=== PATIENT | female | born 1930 | race Caucasian/White ===

== ENCOUNTER → 2017-06-21 | Outpatient (CLI) | payer MEDICARE ==
[2016-08-07 07:15] VITALS: BP 130/67
[~2017-06-21] MED LIST: ACET500T68 PO; ALLO100T PO; ASPI325T8 PO; ASPI81TA44 PO; CHOL10002 PO; DIGO250T17 PO; FURO-68 PO; FURO20TA3 PO; INSU100V SQ; INSU100V8 SQ; LEVO500T8 PO; LIRA0.6P2 SQ; MULT-479 PO; NEBI10TA3 PO; NIAC500T9 PO; OMEP40CA5 PO; OXYB5TAB PO; SIMV40TA PO; TRAM-48 PO; VALS320T2 PO
[2017-06-21 11:06] LABS: BASO % 0 % (0-3); EOS # 0.1 x10^3/uL (0.0-0.7); EOS % 2 % (0-3); HEMATOCRIT 34.9 % (36.0-47.0); HEMOGLOBIN 11.7 g/dL (12.0-15.5); LYMPH # 2.2 x10^3/uL (1.0-4.8); LYMPH % 29 % (24-48); MEAN CORPUSCULAR HEMOGLOBIN 31 pg (25-35); MEAN CORPUSCULAR HGB CONC 34 g/dL (31-37); MEAN CORPUSCULAR VOLUME 91 fL (79-100); MONO # 0.5 x10^3/uL (0.0-1.1); MONO % 7 % (0-9); NEUT # 4.7 x10^3uL (1.8-7.7); NEUT % 62 % (31-73); PLATELET COUNT 174 x10^3/uL (140-400); RED BLOOD COUNT 3.82 x10^6/uL (3.50-5.40); RED CELL DISTRIBUTION WIDTH 14.9 % (11.5-14.5); WHITE BLOOD COUNT 7.7 x10^3/uL (4.0-11.0)
[2017-06-21 11:12] LABS: CALCIUM 8.4 mg/dL (8.5-10.1); CREATININE 1.4 mg/dL (0.6-1.0); GFR 35.4; MAGNESIUM 1.9 mg/dL (1.8-2.4); POTASSIUM 4.5 mmol/L (3.5-5.1)
[2017-06-22 00:07] LABS: CALCIUM PTH 8.5 mg/dL (8.7-10.3); CREATININE PTH 1.28 mg/dL (0.57-1.00); PTH INTACT 115 pg/mL (15-65)
== END | disposition home or self-care (01) ==
LOC: LAB 10:13
PROVIDERS: ATTEND Internal Medicine Nephrology
DX: I12.9 Hypertensive chronic kidney disease with stage 1 through stage 4 chronic kidney disease, or unspecified chronic kidney disease (principal); N18.3 Chronic kidney disease, stage 3 (moderate); E11.22 Type 2 diabetes mellitus with diabetic chronic kidney disease; D63.1 Anemia in chronic kidney disease; D50.9 Iron deficiency anemia, unspecified; E21.3 Hyperparathyroidism, unspecified; N26.9 Renal sclerosis, unspecified; E55.9 Vitamin D deficiency, unspecified; Z68.41 Body mass index [BMI] 40.0-44.9, adult
CPT/HCPCS: 36415; 80069; 82728; 83540; 83550; 83735; 83970; 85025

== ENCOUNTER 2017-06-29 05:37 | Emergency (ER) | payer MEDICARE ==
[~2017-06-29] VITALS: Ht 160 cm; Wt 99.8 kg
[2017-06-29 05:59] VITALS: BP 144/87
--- NOTE | 2017-06-29 06:48 | RAD ---
CT head and cervical spine without contrast 06/29/2017 CLINICAL INDICATION: Syncopal episode, fall, frontal head abrasions, neck pain. COMPARISON: CT head and cervical spine 08/07/2016. TECHNIQUE: Multiple CT images of the head and cervical spine were obtained without contrast according to standard protocol. *One or more of the following individualized dose reduction techniques were utilized for this examination: 1. Automated exposure control. 2. Adjustment of the mA and/or kV according to patient size. 3. Use of iterative reconstruction technique. FINDINGS: Head: There is moderate prominence of the ventricles and subarachnoid spaces compatible with moderate generalized cerebral atrophy. No acute intracranial hemorrhage or extra-axial fluid collection. There is mild periventricular white matter low attenuation compatible with mild nonspecific white matter disease. The basal cisterns are patent. No midline shift or mass effect visualized mastoid air cells and paranasal sinuses are well aerated. Cervical spine: No acute cervical spine fracture or subluxation. Moderate atlantodens arthrosis. Craniocervical junction is maintained. Multilevel cervical spondylosis with disc space narrowing, endplate sclerosis and marginal osteophyte formation greatest at moderate degree at C6-C7. Multilevel uncovertebral and facet hypertrophy and commendation with disc degeneration results and degenerative neural foraminal narrowing. Examination is not optimized for spinal canal narrowing. There is tortuosity and calcified atheromatous disease of the common carotid and internal carotid arteries. IMPRESSION: Head: 1. No acute intracranial hemorrhage or extra-axial fluid collection. 2. Moderate generalized cerebral atrophy and mild nonspecific white matter disease, likely related to chronic small vessel ischemic disease. Cervical spine: 1. No acute cervical spine fracture or subluxation. 2. Cervical spondylosis resulting in mild trilevel degenerative neural foraminal narrowing. Electronically signed by: Justin Nieto MD (06/29/2017 6:44 AM) [place] [id number]
[2017-06-29] MEDS ORDERED: NEOMY/BACITR/POLYMYXIN OINT PACKET. TP ONE (07:00)
--- NOTE | 2017-06-29 07:06 | PHYS DOC ---
Past History Past Medical History: Arthritis, CAD, Cancer, Diabetes, GERD, High Cholesterol , Hypertension, TIA, Other Past Surgical History: Appendectomy, Cancer Surgery, Cholecystectomy, Hysterectomy, Knee Replacement, Lumbar Laminectomy, Other Smoking: Non-smoker Alcohol Use: None Drug Use: None Adult General Chief Complaint Chief Complaint: MECHANICAL FALL HPI HPI Patient is a 87 year old female who presents with pain after a fall. The patient states she had gotten out of bed to use the restroom, doesn't remember what happened but she fell to the floor & hit her face against the floor. She is unsure if she experienced syncope or mechanical fall. She complains of headache, has forehead & left upper arm abrasions. She denies back pain, hip pain. Denies chest pain, palpitations, shortness of breath, extremity numbness/ weakness. No recent vomiting, diarrhea, hematochezia/melena. Was able to ambulate to the phone to call 911. She lives alone & uses a walker to ambulate. She has previous history of fall but not frequently or recently. She takes eliquis for atrial fibrillation. Her PCP is Dr. Le. Review of Systems Review of Systems Constitutional: Denies fever or chills Eyes: Denies change in visual acuity HENT: Denies nasal congestion or sore throat Respiratory: Denies cough or shortness of breath Cardiovascular: Denies chest pain or edema GI: Denies abdominal pain, nausea, vomiting, bloody stools or diarrhea : Denies dysuria or hematuria Musculoskeletal: Denies back pain or joint pain Integument: Reports abrasions Neurologic: Reports headache, denies focal weakness or sensory changes Current Medications Current Medications Current Medications Medications (Trade) Dose Ordered Sig/Amy Start Time Stop Time Status Last Admin Dose Admin Neomycin/ Polymyxin/ Bacitracin (Triple Antibiotic Ointment) 1 pkt 1X ONCE 06/29/17 07:00 06/29/17 07:01 DC 06/29/17 06:56 1 PKT Allergies Allergies Allergies Coded Allergies Type Severity Reaction Last Updated Verified codeine Allergy Unknown 05/04/14 Yes lisinopril Allergy Unknown cough 06/25/14 No morphine Allergy Unknown 05/04/14 Yes Physical Exam Physical Exam Constitutional: obese, no acute distress, non-toxic appearance. HENT: Normocephalic, forehead abrasion, bilateral external ears normal, oropharynx moist, nose normal. Eyes: PERRLA, EOMI, conjunctiva normal, no discharge. Neck: supple, no stridor. No midline c-spine tenderness. Cardiovascular: RRR, no murmurs, no edema. Lungs & Thorax: LCTAB, no wheezing, no respiratory distress. Abdomen: soft, nontender, nondistended. Skin: abrasion to forehead, 2 large skin tears to left upper arm. Back: No spinal tenderness or step offs. Extremities: No tenderness, no edema. Neurologic: Alert and oriented X 3, CN2-12 grossly intact, symmetric strength/ sensation to upper & lower extremities, no focal deficits noted. Psychologic: Affect normal, judgement normal, mood normal. Current Patient Data Vital Signs Vital Signs Date Time Temp Pulse Resp B/P (MAP) Pulse Ox O2 Delivery O2 Flow Rate FiO2 06/29/17 05:59 97.9 60 22 95 Room Air Lab Results Laboratory Tests Test 06/29/17 05:48 Glucose (Fingerstick) 190 mg/dL (70-99) H EKG EKG interpreted by me: NSR rate 60, no acute ST/T wave changes, intraventricular block, AR interval prolonged 232 ms, no ectopy. Radiology/Procedures Radiology/Procedures PROCEDURE: CT HEAD AND CERVICAL SPINE WO CT head and cervical spine without contrast 06/29/2017 CLINICAL INDICATION: Syncopal episode, fall, frontal head abrasions, neck pain. COMPARISON: CT head and cervical spine 08/07/2016. TECHNIQUE: Multiple CT images of the head and cervical spine were obtained without contrast according to standard protocol. *One or more of the following individualized dose reduction techniques were utilized for this examination: 1. Automated exposure control. 2. Adjustment of the mA and/or kV according to patient size. 3. Use of iterative reconstruction technique. FINDINGS: Head: There is moderate prominence of the ventricles and subarachnoid spaces compatible with moderate generalized cerebral atrophy. No acute intracranial hemorrhage or extra-axial fluid collection. There is mild periventricular white matter low attenuation compatible with mild nonspecific white matter disease. The basal cisterns are patent. No midline shift or mass effect visualized mastoid air cells and paranasal sinuses are well aerated. Cervical spine: No acute cervical spine fracture or subluxation. Moderate atlantodens arthrosis. Craniocervical junction is maintained. Multilevel cervical spondylosis with disc space narrowing, endplate sclerosis and marginal osteophyte formation greatest at moderate degree at C6-C7. Multilevel uncovertebral and facet hypertrophy and commendation with disc degeneration results and degenerative neural foraminal narrowing. Examination is not optimized for spinal canal narrowing. There is tortuosity and calcified atheromatous disease of the common carotid and internal carotid arteries. IMPRESSION: Head: 1. No acute intracranial hemorrhage or extra-axial fluid collection. 2. Moderate generalized cerebral atrophy and mild nonspecific white matter disease, likely related to chronic small vessel ischemic disease. Cervical spine: 1. No acute cervical spine fracture or subluxation. 2. Cervical spondylosis resulting in mild trilevel degenerative neural foraminal narrowing. Electronically signed by: Inderjit Nieto MD (06/29/2017 6:44 AM) [facility] DICTATED AND SIGNED BY: INDERJIT NIETO MD DATE: 06/29/17 0636 [] Course & Med Decision Making Course & Med Decision Making Pertinent Labs and Imaging studies reviewed. (See chart for details) The patient presents with pain after a fall. Tetanus was up to date. Initially there was concern for syncope but later in the visit she was very insistent that she was just "clumsy" & tripped over her own feet. She had normal neurologic exam, no arrhythmia here. Stable on her feet after evaluation. Labs show mild acute renal failure & UTI although there is some contamination. CT shows no intracranial injury or c-spine injury. Skin tears cleaned, triple antibiotic & dressing applied by RN. Offered admission as she lives alone, possible syncope, & possibility of delayed intracranial hemorrhage [facility]. She is insistent that she prefers to go home. Her son is present in the room at time of this discussion & he feels comfortable taking her home. I discussed with Dr. Le, her PCP, & he can see her this afternoon in the clinic. Gave macrobid for UTI. Recommend rest, hydration, stand slowly from sitting, use walker, wound care. Come back for altered mental status, focal neuro deficit, ataxia, syncope, chest pain, palpitations, extremity numbness/ weakness, any otherwise worsening condition. Discharged home in stable condition. [] Dragon Disclaimer Dragon Disclaimer This chart was dictated in whole or in part using Voice Recognition software in a busy, high-work load, and often noisy Emergency Department environment. It may contain unintended and wholly unrecognized errors or omissions. Departure Departure: Impression: Primary Impression: Closed head injury Additional Impressions: Forehead abrasion Urinary tract infection Disposition: 01 HOME, SELF-CARE Condition: STABLE Referrals: ODELL LE MD (PCP) Patient Instructions: Fall Prevention and Home Safety, [id number], Head Injury, Adult, Uwoc-[id number], Skin Tear Care, Etuz-nf-Pwak, Urinary Tract Infection, Ksti-xy-Ddut Additional Instructions: You were seen in the emergency department today for fall. You had normal CT scan of your head & neck. You had a urinary tract infection. please take the prescribed antibiotic. Use your walker. There is a chance of delayed bleeding in your brain when you are on blood thinners, so we discussed admission to the hospital. You didn't want to stay in the hospital, so Dr. Le can see you today after your appointment with Dr. Valencia. Come back for confusion, unsteady walking, numbness or weakness in arms or legs, chest pain, palpitations , shortness of breath, recurrence of fall or fainting, any otherwise worsening condition. Scripts Nitrofurantoin Monohyd/M-Cryst (MACROBID 100 MG CAPSULE) 100 Mg Capsule 1 CAP PO BID, #14 CAP Prov: KIT MILLAN MD 06/29/17 Problem Qualifiers KIT MILLAN MD Jun 29, 2017 07:06
[2017-06-29 07:21] LABS: BASO # 0.1 x10^3/uL (0.0-0.2); BASO % 1 % (0-3); EOS # 0.1 x10^3/uL (0.0-0.7); EOS % 1 % (0-3); HEMOGLOBIN 11.9 g/dL (12.0-15.5); LYMPH % 28 % (24-48); MEAN CORPUSCULAR HEMOGLOBIN 31 pg (25-35); MEAN CORPUSCULAR HGB CONC 34 g/dL (31-37); MEAN CORPUSCULAR VOLUME 90 fL (79-100); MONO # 0.5 x10^3/uL (0.0-1.1); MONO % 7 % (0-9); NEUT # 4.7 x10^3uL (1.8-7.7); NEUT % 64 % (31-73); PLATELET COUNT 154 x10^3/uL (140-400); RED BLOOD COUNT 3.87 x10^6/uL (3.50-5.40); RED CELL DISTRIBUTION WIDTH 14.4 % (11.5-14.5); WHITE BLOOD COUNT 7.3 x10^3/uL (4.0-11.0)
[2017-06-29 07:32] LABS: BACTERIA,URINE FEW /HPF (0-FEW); BILIRUBIN,URINE NEG (NEG); CLARITY,URINE HAZY; COLOR,URINE YELLOW; GLUCOSE,URINE NEG (NEG); NITRITE,URINE NEG (NEG); SQUAMOUS EPITHELIAL CELL,UR MOD /LPF; UROBILINOGEN,URINE 0.2 mg/dL (0.2 mg/dL)
[2017-06-29 07:38] LABS: ALBUMIN 3.1 g/dL (3.4-5.0); ALBUMIN/GLOBULIN RATIO 0.9 (1.0-1.7); CALCIUM 8.6 mg/dL (8.5-10.1); CREATININE 1.6 mg/dL (0.6-1.0); GFR 30.3; POTASSIUM 4.6 mmol/L (3.5-5.1); TOTAL BILIRUBIN 0.2 mg/dL (0.2-1.0); TOTAL PROTEIN 6.4 g/dL (6.4-8.2)
[2017-06-29] MEDS ORDERED: NITR100C62 PO (08:06)
[2017-06-29 08:46] LABS: PLT ESTIMATE ADEQUATE (ADEQUATE)
[2017-06-29 08:47] LABS: PLATELET CLUMP PRESENT
--- NOTE | 2017-06-29 18:57 | EKG ---
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
== END 2017-06-29 08:35 | disposition home or self-care (01) ==
LOC: ER 05:37
DX: S09.8XXA Other specified injuries of head, initial encounter (principal); S00.81XA Abrasion of other part of head, initial encounter; S40.812A Abrasion of left upper arm, initial encounter; N39.0 Urinary tract infection, site not specified; I25.10 Atherosclerotic heart disease of native coronary artery without angina pectoris; E11.9 Type 2 diabetes mellitus without complications; E78.00 Pure hypercholesterolemia, unspecified; I10 Essential (primary) hypertension; K21.9 Gastro-esophageal reflux disease without esophagitis; I48.91 Unspecified atrial fibrillation; Z86.73 Personal history of transient ischemic attack (TIA), and cerebral infarction without residual deficits; Z88.5 Allergy status to narcotic agent; Z88.8 Allergy status to other drugs, medicaments and biological substances; W18.09XA Striking against other object with subsequent fall, initial encounter; Y93.89 Activity, other specified; Y99.8 Other external cause status; Y92.89 Other specified places as the place of occurrence of the external cause
CPT/HCPCS: 36415; 70450; 72125; 80053; 81001; 82947; 83880; 84484; 85025; 85610; 87086; 93005; 99285-25

== ENCOUNTER 2017-08-26 10:30 | Inpatient (IN) | payer MEDICARE ==
[~2017-08-26] VITALS: Ht 160 cm; Wt 109.9 kg
[~2017-08-26 10:30] MED LIST changes: +NITR100C62 PO
--- NOTE | 2017-08-26 10:46 | PHYS DOC ---
Past History Past Medical History: Arthritis, CAD, Cancer, Diabetes, GERD, High Cholesterol , Hypertension, TIA, Other Past Surgical History: Appendectomy, Cancer Surgery, Cholecystectomy, Hysterectomy, Knee Replacement, Lumbar Laminectomy, Other Smoking: Non-smoker Alcohol Use: None Drug Use: None Adult General Chief Complaint Chief Complaint: chest pain HPI HPI Patient is a 87 year old female who presents with 2-3 day history of fairly constant substernal chest discomfort mild to moderate nonradiating no shortness of breath no nausea vomiting or diarrhea no dysuria or frequency or flank pain no fever no cough. History of coronary artery disease and pacemaker. She was a very poor historian. Financial Representative is Dr. Holloway, primary care physician is Dr. Pickering. Review of Systems Review of Systems Constitutional: Denies fever or chills [] Eyes: Denies change in visual acuity, redness, or eye pain [] HENT: Denies nasal congestion or sore throat [] Respiratory: Denies cough or shortness of breath [] Cardiovascular: No additional information not addressed in HPI [] GI: Denies abdominal pain, nausea, vomiting, bloody stools or diarrhea [] : Denies dysuria or hematuria [] Musculoskeletal: Denies back pain or joint pain [] Integument: Denies rash or skin lesions [] Neurologic: Denies headache, focal weakness or sensory changes [] Endocrine: Denies polyuria or polydipsia [] All other systems were reviewed and found to be within normal limits, except as documented in this note. Family History Family History Coronary artery disease Allergies Allergies Allergies Coded Allergies Type Severity Reaction Last Updated Verified codeine Allergy Unknown 05/04/14 Yes lisinopril Allergy Unknown cough 06/25/14 No morphine Allergy Unknown 05/04/14 Yes Physical Exam Physical Exam Constitutional: Well developed, well nourished, no acute distress, non-toxic appearance. [] HENT: Normocephalic, atraumatic, bilateral external ears normal, oropharynx moist, no oral exudates, nose normal. [] Eyes: PERRLA, EOMI, conjunctiva normal, no discharge. [] Neck: Normal range of motion, no tenderness, supple, no stridor. [] Cardiovascular:Heart rate regular rhythm, no murmur [] Lungs & Thorax: Bilateral breath sounds clear to auscultation [] Abdomen: Bowel sounds normal, soft, no tenderness, no masses, no pulsatile masses. [] Skin: Warm, dry, no erythema, no rash. [] Back: No tenderness, no CVA tenderness. [] Extremities: No tenderness, no cyanosis, no clubbing, ROM intact, no edema. [] Neurologic: Alert and oriented X 3, normal motor function, normal sensory function, no focal deficits noted. [] Psychologic: Affect normal, judgement normal, mood normal. [] Current Patient Data Lab Results Laboratory Tests Test 08/26/17 10:59 White Blood Count 7.6 x10^3/uL Red Blood Count 4.26 x10^6/uL Hemoglobin 12.7 g/dL Hematocrit 38.8 % Mean Corpuscular Volume 91 fL Mean Corpuscular Hemoglobin 30 pg Mean Corpuscular Hemoglobin Concent 33 g/dL Red Cell Distribution Width 15.5 % Platelet Count 189 x10^3/uL Neutrophils (%) (Auto) 66 % Lymphocytes (%) (Auto) 27 % Monocytes (%) (Auto) 5 % Eosinophils (%) (Auto) 1 % Basophils (%) (Auto) 0 % Neutrophils # (Auto) 5.0 x10^3uL Lymphocytes # (Auto) 2.1 x10^3/uL Monocytes # (Auto) 0.4 x10^3/uL Eosinophils # (Auto) 0.1 x10^3/uL Basophils # (Auto) 0.0 x10^3/uL Sodium Level 141 mmol/L Potassium Level 4.2 mmol/L Chloride Level 104 mmol/L Carbon Dioxide Level 26 mmol/L Anion Gap 11 Blood Urea Nitrogen 50 mg/dL Creatinine 2.1 mg/dL Estimated GFR (Cockcroft-Gault) 22.2 BUN/Creatinine Ratio 24 Glucose Level 240 mg/dL Calcium Level 8.8 mg/dL Total Bilirubin 0.3 mg/dL Aspartate Amino Transf (AST/SGOT) 15 U/L Alanine Aminotransferase (ALT/SGPT) 16 U/L Alkaline Phosphatase 74 U/L Troponin I Quantitative < 0.017 ng/mL Total Protein 6.7 g/dL Albumin 3.1 g/dL Albumin/Globulin Ratio 0.9 Current Medications Medications (Trade) Dose Ordered Sig/Amy Route PRN Reason Start Time Stop Time Status Last Admin Dose Admin Aspirin (Children'S Aspirin) 324 mg 1X ONCE PO 08/26/17 12:15 08/26/17 12:16 Ondansetron HCl (Zofran) 4 mg PRN Q4HRS PRN IV NAUSEA/VOMITING 08/26/17 12:00 08/27/17 11:59 Fentanyl Citrate (Fentanyl 2ml Vial) 50 mcg PRN Q2HR PRN IV PAIN 08/26/17 12:00 08/27/17 11:59 Acetaminophen (Tylenol) 650 mg PRN Q4HRS PRN PO FEVER 08/26/17 12:00 08/27/17 11:59 Nitroglycerin (Nitrostat) 0.4 mg PRN Q5MIN PRN SL CHEST PAIN 08/26/17 12:00 08/27/17 11:59 EKG EKG EKG paced rhythm rate of 80 intraventricular conduction block no STEMI QTC 505 my interpretation[] Radiology/Procedures Radiology/Procedures Chest x-ray No acute cardiopulmonary process seen per radiology report[] Course & Med Decision Making Course & Med Decision Making Pertinent Labs and Imaging studies reviewed. (See chart for details) [EKG paced rhythm, troponin negative, chest x-ray no signs of heart failure. Creatinine was elevated at 2.1; baseline appears to be in the mid 1 range. Left 50 a.m. patient is resting comfortably. I've discussed the case with Dr. Pickering who agrees to admit the patient to telemetry.] Dragon Disclaimer Dragon Disclaimer This electronic medical record was generated, in whole or in part, using a voice recognition dictation system. Departure Departure: Impression: Primary Impression: Acute chest pain Additional Impression: Acute kidney injury Disposition: ADMITTED INPATIENT Condition: STABLE Referrals: ODELL LE MD (PCP) Problem Qualifiers DENVER SORTO MD Aug 26, 2017 10:46
[2017-08-26 11:15] LABS: BASO % 0 % (0-3); EOS # 0.1 x10^3/uL (0.0-0.7); EOS % 1 % (0-3); HEMATOCRIT 38.8 % (36.0-47.0); HEMOGLOBIN 12.7 g/dL (12.0-15.5); LYMPH # 2.1 x10^3/uL (1.0-4.8); LYMPH % 27 % (24-48); MEAN CORPUSCULAR HEMOGLOBIN 30 pg (25-35); MEAN CORPUSCULAR HGB CONC 33 g/dL (31-37); MEAN CORPUSCULAR VOLUME 91 fL (79-100); MONO # 0.4 x10^3/uL (0.0-1.1); MONO % 5 % (0-9); NEUT % 66 % (31-73); PLATELET COUNT 189 x10^3/uL (140-400); RED BLOOD COUNT 4.26 x10^6/uL (3.50-5.40); RED CELL DISTRIBUTION WIDTH 15.5 % (11.5-14.5); WHITE BLOOD COUNT 7.6 x10^3/uL (4.0-11.0)
--- NOTE | 2017-08-26 11:24 | RAD ---
AP chest radiograph 08/26/2017 Clinical indication: Chest pain Comparison: Chest radiograph 08/07/2016 Findings: Left chest wall cardiac connection device in similar position. Cardiac and mediastinal silhouettes are unremarkable. Calcified atheromatous disease of the thoracic aorta. No pleural effusion, pneumothorax or focal consolidation. Impression: No acute cardiopulmonary abnormality.
[2017-08-26 11:28] LABS: ALBUMIN 3.1 g/dL (3.4-5.0); ALBUMIN/GLOBULIN RATIO 0.9 (1.0-1.7); CALCIUM 8.8 mg/dL (8.5-10.1); CREATININE 2.1 mg/dL (0.6-1.0); GFR 22.2; POTASSIUM 4.2 mmol/L (3.5-5.1); TOTAL BILIRUBIN 0.3 mg/dL (0.2-1.0); TOTAL PROTEIN 6.7 g/dL (6.4-8.2)
[2017-08-26] MEDS ORDERED: ACETAMINOPHEN 325 MG TABLET PO PRN (12:00)
[2017-08-26] MEDS ORDERED: ONDANSETRON PF 4 MG/2 ML VIAL. IV PRN (12:00)
[2017-08-26] MEDS ORDERED: NITROGLYCERIN SUBLINGUAL 0.4 MG BOTTLE OF 25. SL PRN (12:00)
[2017-08-26] MEDS ORDERED: ASPIRIN 81 MG TAB.CHEW PO ONE (12:15)
[2017-08-26 14:15] VITALS: BP 120/86
[2017-08-26] MEDS ORDERED: SIMV40TA3 PO (14:29)
[2017-08-26] MEDS ORDERED: INSU100I32 SQ (14:29)
[2017-08-26] MEDS ORDERED: LEVO75TA5 PO (14:29)
[2017-08-26] MEDS ORDERED: INSU100I11 SQ (14:29)
[2017-08-26] MEDS ORDERED: VALS1TAB31 PO (14:29)
[2017-08-26] MEDS ORDERED: NEBI5TAB2 PO (14:29)
[2017-08-26] MEDS ORDERED: CITA20TA5 PO (14:29)
[2017-08-26 15:27] VITALS: BP 114/66
--- NOTE | 2017-08-26 15:45 | EKG ---
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
[2017-08-26] MEDS: INSULIN ASPART 300 UNITS/3 ML INSULN.PEN SQ SCH (16:30)
[2017-08-26 20:21] VITALS: BP 106/48
[2017-08-26] MEDS: SIMVASTATIN 40 MG TABLET. PO SCH (20:22)
[2017-08-26] MEDS: CITALOPRAM 20 MG TABLET. PO SCH (20:22)
[2017-08-26] MEDS: INSULIN DETEMIR 300 UNITS/3 ML INSULN.PEN. SQ SCH (20:29)
[2017-08-26] MEDS: PANTOPRAZOLE 40 MG TABLET. PO SCH (20:29)
[2017-08-26 23:21] VITALS: BP 124/56
[2017-08-27] MEDS: ACETAMINOPHEN 500 MG TABLET PO PRN ×2 (01:10→20:54)
[2017-08-27 06:15] VITALS: BP 150/75
[2017-08-27] MEDS: LEVOTHYROXINE 75 MCG TABLET PO SCH (06:20)
[2017-08-27 07:27] LABS: BASO % 0 % (0-3); EOS # 0.1 x10^3/uL (0.0-0.7); EOS % 2 % (0-3); HEMATOCRIT 35.8 % (36.0-47.0); HEMOGLOBIN 11.5 g/dL (12.0-15.5); LYMPH # 2.6 x10^3/uL (1.0-4.8); LYMPH % 35 % (24-48); MEAN CORPUSCULAR HEMOGLOBIN 29 pg (25-35); MEAN CORPUSCULAR HGB CONC 32 g/dL (31-37); MEAN CORPUSCULAR VOLUME 91 fL (79-100); MONO # 0.7 x10^3/uL (0.0-1.1); MONO % 9 % (0-9); NEUT # 4.1 x10^3uL (1.8-7.7); NEUT % 55 % (31-73); PLATELET COUNT 174 x10^3/uL (140-400); RED BLOOD COUNT 3.93 x10^6/uL (3.50-5.40); RED CELL DISTRIBUTION WIDTH 15.6 % (11.5-14.5); WHITE BLOOD COUNT 7.5 x10^3/uL (4.0-11.0)
[2017-08-27 07:42] LABS: ALBUMIN/GLOBULIN RATIO 0.9 (1.0-1.7); CALCIUM 8.6 mg/dL (8.5-10.1); CREATININE 2.2 mg/dL (0.6-1.0); POTASSIUM 4.2 mmol/L (3.5-5.1); TOTAL BILIRUBIN 0.4 mg/dL (0.2-1.0); TOTAL PROTEIN 6.3 g/dL (6.4-8.2)
[2017-08-27] MEDS: INSULIN ASPART 300 UNITS/3 ML INSULN.PEN SQ SCH ×3 (08:02→17:07)
[2017-08-27] MEDS ORDERED: ENOXAPARIN 30 MG/0.3 ML DISP.SYRIN. SQ SCH (10:00)
[2017-08-27] MEDS: IV NORMAL SALINE 1,000ML 1,000 ML IV SCH (10:24)
[2017-08-27] MEDS: LOSARTAN 50 MG TABLET. PO SCH (10:25)
[2017-08-27] MEDS: hydroCHLOROthiazide 25 MG TABLET PO SCH (10:26)
[2017-08-27] MEDS: CITALOPRAM 20 MG TABLET. PO SCH ×2 (10:27→20:54)
[2017-08-27] MEDS: MULTIVITAMIN with MINERAL TABLET. PO SCH (10:27)
[2017-08-27] MEDS: ALLOPURINOL 100 MG TABLET. PO SCH (10:27)
[2017-08-27] MEDS: PANTOPRAZOLE 40 MG TABLET. PO SCH (10:27)
[2017-08-27] MEDS: ASPIRIN 81 MG TAB.CHEW PO SCH (10:27)
[2017-08-27] MEDS: CHOLECALCIFEROL (VITAMIN D3) 1,000 UNIT TABLET PO SCH (10:27)
[2017-08-27] MEDS: METOPROLOL TART IMMED RELEASE 25 MG TABLET PO SCH ×2 (10:27→20:54)
--- NOTE | 2017-08-27 10:33 | HP ---
ADMIT DATE: 08/26/2017 HISTORY OF PRESENT ILLNESS: An 87-year-old female came in, she has been having intermittent chest pain in her left upper chest and down her left arm with minimal exertion. The patient came in through the Emergency Room. She has a previous history of multiple medical problems. As a result of this, the patient was admitted to the hospital for further evaluation and treatment and consultation with her research chemist, Dr. Estrada, from the [facility]. MEDICATIONS: Include Tylenol, allopurinol 100 mg, aspirin 81, vitamin D3, Celexa 20, insulin, Bystolic 5 mg daily, multivitamin, Prilosec 40 b.i.d., Zocor 40, Valsartan/HCTZ 320/12.5. ALLERGIES: CODEINE, LISINOPRIL, MORPHINE. FAMILY HISTORY: Noncontributory. SOCIAL HISTORY: The patient denies smoking, alcohol or drug use. REVIEW OF SYSTEMS: Positive for chest pain. Denies shortness of breath. Denies headaches, visual changes, blurred vision, or double vision. Denies any melena, hematochezia, or hematemesis, and neurologically baseline for this patient. PHYSICAL EXAMINATION: GENERAL: She is a very pleasant white female, looking a little bit overweight. VITAL SIGNS: Blood pressure 114/66, respiratory rate 20, pulse 80, afebrile. The patient is alert and oriented x3. HEENT: Head is atraumatic, normocephalic. Mouth and throat were normal. NECK: Supple. LUNGS: Clear. CARDIOVASCULAR: Regular sinus rhythm, S1, S2. ABDOMEN: Protuberant, soft, nontender. EXTREMITIES: No clubbing or cyanosis. Trace edema noted, but otherwise unremarkable there. NEUROLOGIC: The patient is alert and oriented x3. LABORATORY DATA: So far are basically unremarkable. White count 7, hemoglobin and hematocrit 12 and 38. The patient's sugar was 265. Cardiac enzymes were negative. Albumin low showing moderate protein deficiency as well as CKD 3. IMPRESSION: Chest pain, rule out angina. PAST MEDICAL HISTORY: Cataract extraction, tonsillectomy, adenoidectomy. She has had a previous history of heart attack, congestive heart failure, coronary artery disease, coronary stent placement, pacemaker, oxygen administration, strictures of the esophagus, pancreatitis, cholecystectomy, obesity, hysterectomy, type 2 diabetes, inguinal hernia, arthritis, gout, orthopedic surgery, joint replacement, back pain, diabetes and depression as well as basal cell carcinoma as well as squamous cell carcinoma, and cataract surgery. The patient otherwise ____ chest pain, type 2 diabetes, morbid obesity, risk factors for heart disease, previous heart attack. PLAN: Continue to monitor the patient accordingly. Make further evaluation on her as indicated. ODELL LE MD DR: MARINO/treva JOB#: [id number] / [id number]
[2017-08-27 12:18] VITALS: BP 141/53
--- NOTE | 2017-08-27 13:25 | PDOC2 ---
CARDIAC CONSULT DATE OF CONSULT Date Of Consult DATE: 08/27/17 TIME: 13:12 REASON FOR CONSULT Reason for Consult Chest pain REFERRING PHYSICIAN Referring Physician Scott Brar MD HPI History of Present Illness Ms. Phillips is a very pleasant 87-year-old female who is currently hospitalized after presenting with symptoms of chest pains. The patient is well known to my partner, Dr. Holloway. The patient has a history of coronary disease status post PCI to the LAD in 2009, as well as PCI to the right coronary artery in 1996. In addition, she does have underlying paroxysmal atrial fibrillation, sick sinus syndrome with permanent pacemaker, essential hypertension, hyperlipidemia, moderate bilateral carotid artery disease, diabetes mellitus type 2, chronic kidney disease, gastroesophageal reflux disease with previous esophageal stricture dilations, and gastroesophageal reflux disease. The patient was most recently seen in our office approximately 5 months ago. At that time, the patient had presented for a routine follow-up visit. She was noted to be relatively stable with only mild symptoms of stable angina, and it was recommended that she continue on her optimal medical regimen. More recently, the patient presented with a several day history of progressively worsening symptoms of chest pains. She describes this as a pressure-like sensation in her mid chest. Interestingly, the patient reports that the pain occurs periodically, and is not necessarily associate with any particular activity. It is intermittent in frequency, and resolve spontaneously. Although she does report atypical features, she does think that the pain may be somewhat similar to her prior at high angina. Her workup thus far has included serial troponin enzymes which have been negative. Her serum creatinine appears to be abnormal, above her baseline creatinine. The patient' s ECG did not demonstrate any significant ischemic changes with underlying paced rhythm. Today, the patient reports that she has continued to have intermittent chest pain symptoms. She denies any palpitations, lightheadedness , or syncope. The patient is otherwise doing well today and has no other particular complaints. FAMILY HISTORY Family History Noncontributory SOCIAL HISTORY Smoke: No CURRENT MEDICATIONS Current Medications Current Medications Aspirin (Children'S Aspirin) 324 mg 1X ONCE PO Last administered on t 12:10; Start 08/26/17 at 12:15; Stop 08/26/17 at 12:16; Status DC Ondansetron HCl (Zofran) 4 mg PRN Q4HRS PRN IV NAUSEA/VOMITING; Start at 12:00; Stop 08/27/17 at 11:59; Status DC Fentanyl Citrate (Fentanyl 2ml Vial) 50 mcg PRN Q2HR PRN IV PAIN; Start at 12:00; Stop 08/27/17 at 11:59; Status DC Acetaminophen (Tylenol) 650 mg PRN Q4HRS PRN PO FEVER; Start 08/26/17 at 12:00 ; Stop 08/26/17 at 15:36; Status DC Nitroglycerin (Nitrostat) 0.4 mg PRN Q5MIN PRN SL CHEST PAIN; Start 08/26/17 at 12:00; Stop 08/27/17 at 11:59; Status DC Acetaminophen (Tylenol) 1,000 mg PRN Q6HRS PRN PO PAIN Last administered on 01:10; Start 08/26/17 at 15:15 Allopurinol (Zyloprim) 200 mg DAILY PO Last administered on 08/27/17 10:27; Start 08/27/17 at 09:00 Aspirin (Children'S Aspirin) 81 mg DAILY PO Last administered on 08/27/17 10: 27; Start 08/27/17 at 09:00 Vitamin D (Vitamin D3) 1,000 unit DAILY PO Last administered on 08/27/17 10: 27; Start 08/27/17 at 09:00 Citalopram Hydrobromide (CeleXA) 20 mg BID PO Last administered on 08/27/17 10:27; Start 08/26/17 at 21:00 Levothyroxine Sodium (Synthroid) 75 mcg DAILY07 PO Last administered on 06:20; Start 08/27/17 at 07:00 Simvastatin (Zocor) 40 mg HS PO Last administered on 08/26/17 20:22; Start 08/26/17 at 21:00 Insulin Detemir (Levemir) 28 units QHS SQ Last administered on 08/26/17 20:29 ; Start 08/26/17 at 21:00 Insulin Aspart (NovoLOG) 22 units TIDAC SQ Last administered on 08/27/17 12: 21; Start 08/26/17 at 16:30 Multivitamins/ Calcium (Thera-M Plus) 1 tab DAILY PO Last administered on 08/27 10:27; Start 08/27/17 at 09:00 Metoprolol Tartrate (Lopressor) 25 mg BID PO Last administered on 08/27/17 10 :27; Start 08/27/17 at 09:00 Pantoprazole Sodium (Protonix) 40 mg DAILY PO Last administered on 08/27/17 10:27; Start 08/26/17 at 21:00 Losartan Potassium (Cozaar) 100 mg DAILY PO Last administered on 08/27/17 10: 25; Start 08/27/17 at 09:00 Hydrochlorothiazide (Hydrodiuril) 6.25 mg DAILY PO Last administered on 10:26; Start 08/27/17 at 09:00 Sodium Chloride 1,000 ml @ 75 mls/hr [id number] IV Last administered on 10:24; Start 08/27/17 at 09:45 Enoxaparin Sodium (Lovenox) 30 mg Q24H SQ Last administered on 08/27/17 10:24 ; Start 08/27/17 at 10:00 Active Scripts Active Reported Valsartan-Hctz 320-12.5 Mg Tab (Valsartan/Hydrochlorothiazide) 1 Each Tablet 1 Tab PO BID LAST DOSE GIVEN: DATE: TIME: NEXT DOSE DUE: DATE: TIME: Levothyroxine Sodium 75 Mcg Tablet 75 Mcg PO DAILY LAST DOSE GIVEN: DATE: TIME: NEXT DOSE DUE: DATE: TIME: Citalopram Hbr (Citalopram Hydrobromide) 20 Mg Tablet 20 Mg PO BID LAST DOSE GIVEN: DATE: TIME: NEXT DOSE DUE: DATE: TIME: Bystolic (Nebivolol Hcl) 5 Mg Tablet 5 Mg PO DAILY LAST DOSE GIVEN: DATE: TIME: NEXT DOSE DUE: DATE: TIME: Simvastatin 40 Mg Tablet 40 Mg PO HS LAST DOSE GIVEN: DATE: TIME: NEXT DOSE DUE: DATE: TIME: Mihir Santoyo U-100 (Insulin Glargine,Hum.rec.anlog) 100 Unit/1 Ml Insuln.pen 28 Units SQ HS LAST DOSE GIVEN: DATE: TIME: NEXT DOSE DUE: DATE: TIME: Humalog (Insulin Lispro) 100 Unit/1 Ml Insuln.pen 22 Units SQ TIDAC LAST DOSE GIVEN: DATE: TIME: NEXT DOSE DUE: DATE: TIME: Allopurinol 100 Mg Tablet 2 Tab PO DAILY For gout last dose: today next dose: tomorrow Children's Aspirin (Aspirin) 81 Mg Tab.chew 81 Mg PO DAILY For heart health Next dose: tomorrow Acetaminophen 500 Mg Tablet 2 Tab PO PRN Q6HRS PRN Take wvery 6 as needed for pain Omeprazole 40 Mg Capsule.dr 40 Mg PO BID last dose 06/28 am next dose 06/29 am Thera-Tabs (Multivitamins,Therapeutic) 1 Each Tablet 1 Each PO DAILY Vitamin D (Cholecalciferol (Vitamin D3)) 1,000 Unit Tablet 1,000 Unit PO DAILY last dose: today next dose: tomorrow ALLERGIES Allergies: Coded Allergies: codeine (Verified Allergy, Intermediate, 08/27/17) lisinopril (Unverified Allergy, Intermediate, cough, 08/27/17) morphine (Verified Allergy, Intermediate, 08/27/17) PHYSICAL EXAM General: Alert, Oriented X3, Cooperative, No acute distress HEENT: Atraumatic, PERRLA, EOMI Lungs: Clear to auscultation, Normal air movement Heart: Regular rate, No murmurs Abdomen: Normal bowel sounds, Soft, No tenderness Extremities: No clubbing, No edema Neuro: Normal speech, Normal tone, Cranial nerves 3-12 NL Psych/Mental Status: Mental status NL MUSCULOSKELETAL: No joint tenderness VITALS Vital Signs Vital Signs Date Time Temp Pulse Resp B/P (MAP) Pulse Ox O2 Delivery O2 Flow Rate FiO2 08/27/17 12:18 97.3 61 20 141/53 (82) 99 Room Air LABS LABS Laboratory Tests Test 08/26/17 10:59 08/26/17 16:40 08/26/17 16:45 08/26/17 19:42 White Blood Count 7.6 x10^3/uL (4.0-11.0) Red Blood Count 4.26 x10^6/uL (3.50-5.40) Hemoglobin 12.7 g/dL (12.0-15.5) Hematocrit 38.8 % (36.0-47.0) Mean Corpuscular Volume 91 fL (79-100) Mean Corpuscular Hemoglobin 30 pg (25-35) Mean Corpuscular Hemoglobin Concent 33 g/dL (31-37) Red Cell Distribution Width 15.5 % (11.5-14.5) Platelet Count 189 x10^3/uL (140-400) Neutrophils (%) (Auto) 66 % (31-73) Lymphocytes (%) (Auto) 27 % (24-48) Monocytes (%) (Auto) 5 % (0-9) Eosinophils (%) (Auto) 1 % (0-3) Basophils (%) (Auto) 0 % (0-3) Neutrophils # (Auto) 5.0 x10^3uL (1.8-7.7) Lymphocytes # (Auto) 2.1 x10^3/uL (1.0-4.8) Monocytes # (Auto) 0.4 x10^3/uL (0.0-1.1) Eosinophils # (Auto) 0.1 x10^3/uL (0.0-0.7) Basophils # (Auto) 0.0 x10^3/uL (0.0-0.2) Sodium Level 141 mmol/L (136-145) Potassium Level 4.2 mmol/L (3.5-5.1) Chloride Level 104 mmol/L (98-107) Carbon Dioxide Level 26 mmol/L (21-32) Anion Gap 11 (6-14) Blood Urea Nitrogen 50 mg/dL (7-20) Creatinine 2.1 mg/dL (0.6-1.0) Estimated GFR (Cockcroft-Gault) 22.2 BUN/Creatinine Ratio 24 (6-20) Glucose Level 240 mg/dL (70-99) Calcium Level 8.8 mg/dL (8.5-10.1) Total Bilirubin 0.3 mg/dL (0.2-1.0) Aspartate Amino Transf (AST/SGOT) 15 U/L (15-37) Alanine Aminotransferase (ALT/SGPT) 16 U/L (14-59) Alkaline Phosphatase 74 U/L (46-116) Troponin I Quantitative < 0.017 ng/mL (0-0.055) < 0.017 ng/mL (0-0.055) Total Protein 6.7 g/dL (6.4-8.2) Albumin 3.1 g/dL (3.4-5.0) Albumin/Globulin Ratio 0.9 (1.0-1.7) Glucose (Fingerstick) 77 mg/dL (70-99) 265 mg/dL (70-99) Test 08/26/17 22:45 08/27/17 07:08 08/27/17 07:15 08/27/17 11:57 Troponin I Quantitative < 0.017 ng/mL (0-0.055) White Blood Count 7.5 x10^3/uL (4.0-11.0) Red Blood Count 3.93 x10^6/uL (3.50-5.40) Hemoglobin 11.5 g/dL (12.0-15.5) Hematocrit 35.8 % (36.0-47.0) Mean Corpuscular Volume 91 fL (79-100) Mean Corpuscular Hemoglobin 29 pg (25-35) Mean Corpuscular Hemoglobin Concent 32 g/dL (31-37) Red Cell Distribution Width 15.6 % (11.5-14.5) Platelet Count 174 x10^3/uL (140-400) Neutrophils (%) (Auto) 55 % (31-73) Lymphocytes (%) (Auto) 35 % (24-48) Monocytes (%) (Auto) 9 % (0-9) Eosinophils (%) (Auto) 2 % (0-3) Basophils (%) (Auto) 0 % (0-3) Neutrophils # (Auto) 4.1 x10^3uL (1.8-7.7) Lymphocytes # (Auto) 2.6 x10^3/uL (1.0-4.8) Monocytes # (Auto) 0.7 x10^3/uL (0.0-1.1) Eosinophils # (Auto) 0.1 x10^3/uL (0.0-0.7) Basophils # (Auto) 0.0 x10^3/uL (0.0-0.2) Sodium Level 141 mmol/L (136-145) Potassium Level 4.2 mmol/L (3.5-5.1) Chloride Level 104 mmol/L (98-107) Carbon Dioxide Level 29 mmol/L (21-32) Anion Gap 8 (6-14) Blood Urea Nitrogen 59 mg/dL (7-20) Creatinine 2.2 mg/dL (0.6-1.0) Estimated GFR (Cockcroft-Gault) 21.0 BUN/Creatinine Ratio 27 (6-20) Glucose Level 125 mg/dL (70-99) Calcium Level 8.6 mg/dL (8.5-10.1) Total Bilirubin 0.4 mg/dL (0.2-1.0) Aspartate Amino Transf (AST/SGOT) 14 U/L (15-37) Alanine Aminotransferase (ALT/SGPT) 16 U/L (14-59) Alkaline Phosphatase 67 U/L (46-116) Total Protein 6.3 g/dL (6.4-8.2) Albumin 3.0 g/dL (3.4-5.0) Albumin/Globulin Ratio 0.9 (1.0-1.7) Glucose (Fingerstick) 120 mg/dL (70-99) 182 mg/dL (70-99) ECHOCARDIOGRAM Echocardiogram ECHOCARDIOGRAM IMPRESSION (08/02/2014) ([facility]): The estimated ejection fraction is 55-60%. There is mild to moderate concentric left ventricular hypertrophy. The leECHOCARDIOGRAM IMPRESSION (08/02/2014) ([facility]): The estimated ejection fraction is 55-60%. There is mild to moderate concentric left ventricular hypertrophy. The left ventricular diastolic filling pattern is consistent with pseudonormalization. The right ventricle is mildly dilated. The left atrium is mildly dilated. The right atrium is mildly dilated. Mild aortic cusp sclerosis is present. There is mild mitral annular calcification. The pulmonary artery pressure is estimated at 65 mmHg. ft ventricular diastolic filling pattern is consistent with pseudonormalization. The right ventricle is mildly dilated. The left atrium is mildly dilated. The right atrium is mildly dilated. Mild aortic cusp sclerosis is present. There is mild mitral annular calcification. The pulmonary artery pressure is estimated at 65 mmHg. STRESS TEST Stress Test LEXISCAN NUCLEAR STRESS TEST IMPRESSION (11/30/2013): Hemodynamic response: There was a normal heart rate and a hypertensive blood pressure response to stress. Clinical response: There was no chest pain during stress. Arrhythmias: None. Stress ECG: There were no significant stress induced ECG changes. Myocardial perfusion: Normal perfusion without evidence of infarction or ischemia. Wall motion: Normal. Ejection fraction: 67%. Compared to the previous study performed on 06/09/2012, there was no significant change. HEART CATH Heart Cath CARDIAC CATHETERIZATION IMPRESSION (06/16/2012): Severe systemic hypertension with normal left ventricular end-diastolic pressure. Patent stents in the left anterior descending and left circumflex coronary arteries as outlined above with mild neointimal hyperplasia. There is a 50% stenosis in the ostium of the left circumflex and ramus intermedius branches. Fractional flow reserve on the left circumflex coronary artery did not reveal this stenosis to be significant. The patient is known to have normal left ventricular systolic function by previous noninvasive studies. ASSESSMENT/PLAN Assessment/Plan 1. Chest pain with typical and atypical features, possible Angina Pectoris 2. History of CAD s/p PCI 3. Paroxysmal atrial fibrillation on chronic anticoagulation 4. Essential hypertension 5. Hyperlipidemia 6. Carotid artery disease 7. SSS s/p PPM 8. Acute on chronic renal failure Ms. Phillips presented with symptoms of chest pains with typical and atypical features. Upon questioning, the patient does relate that her symptoms may be similar to her prior anginal features. Her workup thus far has been unremarkable, with negative serial troponin enzymes. Her ECG demonstrates a paced rhythm, and no obvious ischemic changes are noted. Unfortunately, the patient has continued to have intermittent episodes of chest pains during her hospitalization. It does also appear that she has evidence of acute on chronic renal insufficiency. Given the fact that the patient has continued to have symptoms, I think further ischemic workup may be necessary. I have suggested that we proceed with a Lexiscan nuclear stress test to rule out any underlying inducible ischemia could be contributing to her symptoms. This could be done in the outpatient setting, but the patient does continue to have chest pains in during her hospitalization. I have asked the nursing staff to hydrate the patient tonight. If her symptoms do resolve over the weekend she may be discharged, we will plan on performing a stress test in the outpatient setting in her office. Nonetheless, the patient does remain symptomatic, further diagnostic testing will need to be performed in the inpatient setting on Wednesday. In the meantime, I agree with continuing her current medical regimen as prescribed. She remains on chronic anticoagulation with Eliquis for underlying atrial fibrillation. The patient's blood pressure does appear to be appropriately controlled on her home regimen. We will continue to follow along. Please call with any further questions. MARIELEL DAUGHERTY MD Aug 27, 2017 13:25
[2017-08-27] MEDS ORDERED: APIX2.5T PO (14:24)
[2017-08-27 15:50] VITALS: BP 91/56
[2017-08-27 20:01] VITALS: BP 127/58
[2017-08-27] MEDS: SIMVASTATIN 40 MG TABLET. PO SCH (20:54)
[2017-08-27] MEDS: APIXABAN 2.5 MG TABLET PO SCH (20:54)
[2017-08-27] MEDS: INSULIN DETEMIR 300 UNITS/3 ML INSULN.PEN. SQ SCH (21:00)
[2017-08-27 22:47] VITALS: BP 152/74
[2017-08-28] MEDS: IV NORMAL SALINE 1,000ML 1,000 ML IV SCH (01:20)
[2017-08-28 05:14] VITALS: BP 161/69
[2017-08-28] MEDS: LEVOTHYROXINE 75 MCG TABLET PO SCH (05:18)
[2017-08-28] MEDS: INSULIN ASPART 300 UNITS/3 ML INSULN.PEN SQ SCH ×3 (07:30→17:19)
[2017-08-28 07:53] LABS: BASO % 0 % (0-3); EOS # 0.2 x10^3/uL (0.0-0.7); EOS % 3 % (0-3); HEMATOCRIT 34.3 % (36.0-47.0); HEMOGLOBIN 11.3 g/dL (12.0-15.5); LYMPH # 2.6 x10^3/uL (1.0-4.8); LYMPH % 42 % (24-48); MEAN CORPUSCULAR HEMOGLOBIN 30 pg (25-35); MEAN CORPUSCULAR HGB CONC 33 g/dL (31-37); MEAN CORPUSCULAR VOLUME 91 fL (79-100); MONO # 0.5 x10^3/uL (0.0-1.1); MONO % 8 % (0-9); NEUT % 47 % (31-73); PLATELET COUNT 152 x10^3/uL (140-400); RED BLOOD COUNT 3.77 x10^6/uL (3.50-5.40); RED CELL DISTRIBUTION WIDTH 15.2 % (11.5-14.5); WHITE BLOOD COUNT 6.3 x10^3/uL (4.0-11.0)
[2017-08-28 08:30] LABS: ALBUMIN 3.1 g/dL (3.4-5.0); CALCIUM 8.4 mg/dL (8.5-10.1); CREATININE 1.8 mg/dL (0.6-1.0); GFR 26.5; POTASSIUM 4.3 mmol/L (3.5-5.1); TOTAL BILIRUBIN 0.2 mg/dL (0.2-1.0); TOTAL PROTEIN 6.1 g/dL (6.4-8.2)
[2017-08-28] MEDS: PANTOPRAZOLE 40 MG TABLET. PO SCH (08:55)
[2017-08-28] MEDS: MULTIVITAMIN with MINERAL TABLET. PO SCH (08:55)
[2017-08-28] MEDS: CHOLECALCIFEROL (VITAMIN D3) 1,000 UNIT TABLET PO SCH (08:55)
[2017-08-28] MEDS: ALLOPURINOL 100 MG TABLET. PO SCH (08:55)
[2017-08-28] MEDS: ASPIRIN 81 MG TAB.CHEW PO SCH (08:55)
[2017-08-28] MEDS: CITALOPRAM 20 MG TABLET. PO SCH ×2 (08:56→20:51)
[2017-08-28] MEDS: hydroCHLOROthiazide 25 MG TABLET PO SCH (08:56)
[2017-08-28] MEDS: APIXABAN 2.5 MG TABLET PO SCH ×2 (08:56→20:51)
[2017-08-28] MEDS: LOSARTAN 50 MG TABLET. PO SCH (08:57)
[2017-08-28] MEDS: METOPROLOL TART IMMED RELEASE 25 MG TABLET PO SCH ×2 (08:58→20:51)
[2017-08-28] MEDS ORDERED: NITROGLYCERIN SUBLINGUAL 0.4 MG BOTTLE OF 25. SL PRN (09:45)
[2017-08-28 10:47] VITALS: BP 162/80
--- NOTE | 2017-08-28 12:14 | PN ---
DATE: 08/28/2017 SUBJECTIVE: An 87-year-old female with unstable angina still having some chest pain off and on even at rest. Dr. Estrada has required some type of nuclear scan that will be done Wednesday, today being Wednesday. Otherwise, the patient is still requiring close monitoring as she is still having unstable angina. OBJECTIVE: VITAL SIGNS: The patient's blood pressure is 160/70, respiratory rate 20, pulse 60, afebrile. LUNGS: Diminished, but clear. CARDIOVASCULAR: Regular sinus rhythm. ABDOMEN: Soft, nontender, distended. EXTREMITIES: No clubbing, cyanosis, or edema. IMPRESSION: Unstable angina. PLAN: Continue to monitor the patient and accordingly make further evaluation for nuclear scan. I told the patient to call the nurses sooner if she has any chest pain to do nitroglycerin and EKG. ODELL LE MD DR: MARINO/treva JOB#: [id number] / [id number]
[2017-08-28 13:19] LABS: BILIRUBIN,URINE NEG (NEG); CLARITY,URINE CLOUDY; COLOR,URINE YELLOW; GLUCOSE,URINE 100 mg/dL (NEG); NITRITE,URINE NEG (NEG); UROBILINOGEN,URINE 0.2 mg/dL (0.2 mg/dL)
[2017-08-28 13:20] LABS: BACTERIA,URINE FEW /HPF (0-FEW); SQUAMOUS EPITHELIAL CELL,UR FEW /LPF; WBC,URINE >40 /HPF (0-4)
[2017-08-28 15:19] VITALS: BP 126/64
[2017-08-28 19:52] VITALS: BP 127/53
[2017-08-28] MEDS: SIMVASTATIN 40 MG TABLET. PO SCH (20:51)
[2017-08-28] MEDS: INSULIN DETEMIR 300 UNITS/3 ML INSULN.PEN. SQ SCH (20:52)
[2017-08-28 23:26] VITALS: BP 178/62
[2017-08-29] MEDS: ACETAMINOPHEN 500 MG TABLET PO PRN (01:37)
[2017-08-29] MEDS: LEVOTHYROXINE 75 MCG TABLET PO SCH (05:18)
[2017-08-29 05:44] VITALS: BP 158/66
[2017-08-29 07:20] LABS: BASO % 0 % (0-3); EOS # 0.2 x10^3/uL (0.0-0.7); EOS % 3 % (0-3); HEMATOCRIT 33.7 % (36.0-47.0); HEMOGLOBIN 11.2 g/dL (12.0-15.5); LYMPH # 2.5 x10^3/uL (1.0-4.8); LYMPH % 40 % (24-48); MEAN CORPUSCULAR HEMOGLOBIN 30 pg (25-35); MEAN CORPUSCULAR HGB CONC 33 g/dL (31-37); MEAN CORPUSCULAR VOLUME 90 fL (79-100); MONO # 0.5 x10^3/uL (0.0-1.1); MONO % 7 % (0-9); NEUT # 3.1 x10^3uL (1.8-7.7); NEUT % 50 % (31-73); PLATELET COUNT 157 x10^3/uL (140-400); RED BLOOD COUNT 3.76 x10^6/uL (3.50-5.40); RED CELL DISTRIBUTION WIDTH 15.1 % (11.5-14.5); WHITE BLOOD COUNT 6.3 x10^3/uL (4.0-11.0)
[2017-08-29 07:27] LABS: CALCIUM 8.7 mg/dL (8.5-10.1); CREATININE 1.7 mg/dL (0.6-1.0); GFR 28.3; POTASSIUM 4.6 mmol/L (3.5-5.1)
[2017-08-29] MEDS: INSULIN ASPART 300 UNITS/3 ML INSULN.PEN SQ SCH ×3 (07:30→17:52)
[2017-08-29] MEDS: CHOLECALCIFEROL (VITAMIN D3) 1,000 UNIT TABLET PO SCH (08:03)
[2017-08-29] MEDS: MULTIVITAMIN with MINERAL TABLET. PO SCH (08:03)
[2017-08-29] MEDS: APIXABAN 2.5 MG TABLET PO SCH ×2 (08:03→20:49)
[2017-08-29] MEDS: ASPIRIN 81 MG TAB.CHEW PO SCH (08:04)
[2017-08-29] MEDS: ALLOPURINOL 100 MG TABLET. PO SCH (08:04)
[2017-08-29] MEDS: hydroCHLOROthiazide 25 MG TABLET PO SCH (08:04)
[2017-08-29] MEDS: PANTOPRAZOLE 40 MG TABLET. PO SCH (08:05)
[2017-08-29] MEDS: CITALOPRAM 20 MG TABLET. PO SCH ×2 (08:05→20:49)
[2017-08-29] MEDS: METOPROLOL TART IMMED RELEASE 25 MG TABLET PO SCH ×2 (08:05→20:49)
[2017-08-29] MEDS: LOSARTAN 50 MG TABLET. PO SCH (08:07)
[2017-08-29 10:58] VITALS: BP 145/93
--- NOTE | 2017-08-29 11:24 | PN ---
DATE: SUBJECTIVE: The patient is still having some intermittent chest pain, unstable angina. OBJECTIVE: VITAL SIGNS: Otherwise, the patient's blood pressure is stable at 158/66, respiratory rate 16, pulse 63, afebrile. LUNGS: Diminished throughout, but clear. CARDIOVASCULAR: Regular sinus rhythm. ABDOMEN: Soft, nontender. EXTREMITIES: No clubbing, cyanosis, or edema. The patient otherwise seems to be resting fairly comfortably and making fairly good progress overall. LABORATORY DATA: Blood sugars in the low 100s. BUN and creatinine have come down from her 2.2 down to 1.7. IMPRESSION: Unstable angina, acute renal failure, type 2 diabetes, obesity. Urine culture is still pending. We will await for Dr. Estrada tomorrow to perform the MPI. ODELL LE MD DR: MARINO/treva JOB#: [id number] / [id number]
[2017-08-29 15:08] VITALS: BP 133/57
[2017-08-29 20:28] VITALS: BP 188/80
[2017-08-29] MEDS: SIMVASTATIN 40 MG TABLET. PO SCH (20:50)
[2017-08-29] MEDS: INSULIN DETEMIR 300 UNITS/3 ML INSULN.PEN. SQ SCH (20:50)
[2017-08-29 22:12] VITALS: BP 110/65
[2017-08-30] MEDS: LEVOTHYROXINE 75 MCG TABLET PO SCH (05:20)
[2017-08-30 06:25] VITALS: BP 125/59
[2017-08-30 07:19] LABS: BASO % 0 % (0-3); EOS # 0.2 x10^3/uL (0.0-0.7); EOS % 3 % (0-3); HEMOGLOBIN 11.1 g/dL (12.0-15.5); LYMPH # 2.3 x10^3/uL (1.0-4.8); LYMPH % 35 % (24-48); MEAN CORPUSCULAR HEMOGLOBIN 31 pg (25-35); MEAN CORPUSCULAR HGB CONC 34 g/dL (31-37); MEAN CORPUSCULAR VOLUME 91 fL (79-100); MONO # 0.5 x10^3/uL (0.0-1.1); MONO % 8 % (0-9); NEUT # 3.5 x10^3uL (1.8-7.7); NEUT % 54 % (31-73); PLATELET COUNT 155 x10^3/uL (140-400); RED BLOOD COUNT 3.63 x10^6/uL (3.50-5.40); RED CELL DISTRIBUTION WIDTH 15.3 % (11.5-14.5); WHITE BLOOD COUNT 6.5 x10^3/uL (4.0-11.0)
[2017-08-30 07:21] LABS: CREATININE 1.4 mg/dL (0.6-1.0); GFR 35.4; POTASSIUM 4.5 mmol/L (3.5-5.1)
[2017-08-30] MEDS: CITALOPRAM 20 MG TABLET. PO SCH (08:51)
[2017-08-30] MEDS: ALLOPURINOL 100 MG TABLET. PO SCH (08:51)
[2017-08-30] MEDS: APIXABAN 2.5 MG TABLET PO SCH (08:51)
[2017-08-30 08:52] VITALS: BP 125/59
[2017-08-30] MEDS: LOSARTAN 50 MG TABLET. PO SCH (08:52)
[2017-08-30] MEDS: hydroCHLOROthiazide 25 MG TABLET PO SCH (08:52)
[2017-08-30] MEDS: METOPROLOL TART IMMED RELEASE 25 MG TABLET PO SCH (08:52)
[2017-08-30] MEDS: ASPIRIN 81 MG TAB.CHEW PO SCH (08:52)
[2017-08-30] MEDS: MULTIVITAMIN with MINERAL TABLET. PO SCH (08:52)
[2017-08-30] MEDS: PANTOPRAZOLE 40 MG TABLET. PO SCH (08:52)
[2017-08-30] MEDS: CHOLECALCIFEROL (VITAMIN D3) 1,000 UNIT TABLET PO SCH (08:53)
[2017-08-30] MEDS ORDERED: NITR0.4T SL (08:59)
[2017-08-30] MEDS: INSULIN ASPART 300 UNITS/3 ML INSULN.PEN SQ SCH (09:02)
--- NOTE | 2017-08-30 09:03 | PDOC ---
SUBJECTIVE Subjective: Ms. Tracey is doing relatively well this morning. She reports that her chest pain symptoms have resolved completely, and is eager to be discharged home. She denies any shortness of breath, palpitations, lightheadedness, or syncope. She has no particular complaints this morning. Exam Constitutional: Denies fever or chills Eyes: Denies change in visual acuity HENT: Denies nasal congestion or sore throat Respiratory: Denies cough or shortness of breath Cardiovascular: Denies chest pain or edema GI: Denies abdominal pain, nausea, vomiting, bloody stools or diarrhea : Denies dysuria Musculoskeletal: Denies back pain or joint pain Integument: Denies rash Neurologic: Denies headache, focal weakness or sensory changes Endocrine: Denies polyuria or polydipsia Lymphatic: Denies swollen glands Psychiatric: Denies depression or anxiety OBJECTIVE Vital Signs Vital Signs Date Time Temp Pulse Resp B/P (MAP) Pulse Ox O2 Delivery O2 Flow Rate FiO2 08/30/17 06:25 97.5 60 18 125/59 (81) 97 Room Air Physical Exam Constitutional: Well developed, well nourished, no acute distress, non-toxic appearance. HENT: Normocephalic, atraumatic, bilateral external ears normal, oropharynx moist, no oral exudates, nose normal. Eyes: ARTURO, EOMI, conjunctiva normal, no discharge. Neck: Normal range of motion, no tenderness, supple, no stridor. Cardiovascular: JVP not elevated. No carotid bruit. Nor precordial pulsations or heaves. S1 N,S2N. No murmurs. No rubs or clicks. Thorax and Lungs: NOrmal respiration. Normal chest expansion. Normal to percuss. Equal breath sounds. No crackles. No wheeze. Abdomen: Bowel sounds normal, soft, no tenderness, no masses, no pulsatile masses. Skin: Warm, dry, no erythema, no rash. Back: No tenderness, no CVA tenderness. Extremities: Intact distal pulses, no tenderness, no cyanosis, no clubbing, ROM intact, no edema. Neurologic: Alert and oriented X 3, normal motor function, normal sensory function, no focal deficits noted. Psychologic: Affect normal, judgement normal, mood normal. Lab Laboratory Tests Test 08/29/17 11:18 08/29/17 16:25 08/29/17 19:49 08/30/17 06:37 Glucose (Fingerstick) 283 mg/dL (70-99) H 211 mg/dL (70-99) H 209 mg/dL (70-99) H White Blood Count 6.5 x10^3/uL (4.0-11.0) Red Blood Count 3.63 x10^6/uL (3.50-5.40) Hemoglobin 11.1 g/dL (12.0-15.5) L Hematocrit 33.0 % (36.0-47.0) L Mean Corpuscular Volume 91 fL (79-100) Mean Corpuscular Hemoglobin 31 pg (25-35) Mean Corpuscular Hemoglobin Concent 34 g/dL (31-37) Red Cell Distribution Width 15.3 % (11.5-14.5) H Platelet Count 155 x10^3/uL (140-400) Neutrophils (%) (Auto) 54 % (31-73) Lymphocytes (%) (Auto) 35 % (24-48) Monocytes (%) (Auto) 8 % (0-9) Eosinophils (%) (Auto) 3 % (0-3) Basophils (%) (Auto) 0 % (0-3) Neutrophils # (Auto) 3.5 x10^3uL (1.8-7.7) Lymphocytes # (Auto) 2.3 x10^3/uL (1.0-4.8) Monocytes # (Auto) 0.5 x10^3/uL (0.0-1.1) Eosinophils # (Auto) 0.2 x10^3/uL (0.0-0.7) Basophils # (Auto) 0.0 x10^3/uL (0.0-0.2) Sodium Level 141 mmol/L (136-145) Potassium Level 4.5 mmol/L (3.5-5.1) Chloride Level 107 mmol/L (98-107) Carbon Dioxide Level 28 mmol/L (21-32) Anion Gap 6 (6-14) Blood Urea Nitrogen 42 mg/dL (7-20) H Creatinine 1.4 mg/dL (0.6-1.0) H Estimated GFR (Cockcroft-Gault) 35.4 Glucose Level 133 mg/dL (70-99) H Calcium Level 9.0 mg/dL (8.5-10.1) Test 08/30/17 08:00 Glucose (Fingerstick) 136 mg/dL (70-99) H MEDICATIONS Medications Current Medications Medications (Trade) Dose Ordered Sig/Amy Start Time Stop Time Status Last Admin Dose Admin Acetaminophen (Tylenol) 1,000 mg PRN Q6HRS PRN 08/26/17 15:15 08/29/17 01:37 1,000 MG Allopurinol (Zyloprim) 200 mg DAILY 08/27/17 09:00 08/29/17 08:04 200 MG Apixaban (Eliquis) 2.5 mg BID 08/27/17 21:00 08/29/17 20:49 2.5 MG Aspirin (Children'S Aspirin) 81 mg DAILY 08/27/17 09:00 08/29/17 08:04 81 MG Citalopram Hydrobromide (CeleXA) 20 mg BID 08/26/17 21:00 08/29/17 20:49 20 MG Enoxaparin Sodium (Lovenox) 30 mg Q24H 08/27/17 10:00 08/27/17 14:26 DC 08/27/17 10:24 30 MG Fentanyl Citrate (Fentanyl 2ml Vial) 50 mcg PRN Q2HR PRN 08/26/17 12:00 08/27/17 11:59 DC Hydrochlorothiazide (Hydrodiuril) 6.25 mg DAILY 08/27/17 09:00 08/29/17 08:04 6.25 MG Insulin Aspart (NovoLOG) 22 units TIDAC 08/26/17 16:30 08/29/17 17:52 22 UNITS Insulin Detemir (Levemir) 28 units QHS 08/26/17 21:00 08/29/17 20:50 28 UNITS Levothyroxine Sodium (Synthroid) 75 mcg DAILY07 08/27/17 07:00 08/30/17 05:20 75 MCG Losartan Potassium (Cozaar) 100 mg DAILY 08/27/17 09:00 08/29/17 08:07 100 MG Metoprolol Tartrate (Lopressor) 25 mg BID 08/27/17 09:00 08/29/17 20:49 25 MG Multivitamins/ Calcium (Thera-M Plus) 1 tab DAILY 08/27/17 09:00 08/29/17 08:03 1 TAB Nitroglycerin (Nitrostat) 0.4 mg PRN Q5MIN PRN 08/28/17 09:45 Ondansetron HCl (Zofran) 4 mg PRN Q4HRS PRN 08/26/17 12:00 08/27/17 11:59 DC Pantoprazole Sodium (Protonix) 40 mg DAILY 08/26/17 21:00 08/29/17 08:05 40 MG Simvastatin (Zocor) 40 mg HS 08/26/17 21:00 08/29/17 20:50 40 MG Sodium Chloride 1,000 ml @ 75 mls/hr [id number] 08/27/17 09:45 08/28/17 09:37 DC 08/28/17 01:20 75 MLS/HR Vitamin D (Vitamin D3) 1,000 unit DAILY 08/27/17 09:00 08/29/17 08:03 1,000 UNIT PLAN Plan 1. Chest pain with typical and atypical features, possible Angina Pectoris, resolved 2. History of CAD s/p PCI 3. Paroxysmal atrial fibrillation on chronic anticoagulation 4. Essential hypertension 5. Hyperlipidemia 6. Carotid artery disease 7. SSS s/p PPM 8. Acute on chronic renal failure, resolved 9. Obesity Ms. Tracey is doing relatively well this morning. She is adamant that her chest pain symptoms have resolved completely, and is quite eager to be discharged home. She denies any further anginal symptoms. Her work up has been unremarkable thus far, with negative serial troponin enzymes, and ECG demonstrating a paced rhythm. I do note that her renal function has improved back to her baseline with IV hydration over the weekend. Given that her chest pain has resolved, and her ACS work up has been negative, I think it may be reasonable for the patient to have the rest of her work up in the outpatient setting. She will likely need a 2 day MPI given her underlying obesity. 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 Holloway, next week. In the mean time, she should resume her home cardiac regimen. I have emphasized to the patient that if she has any further symptoms, to contact my office or return for further evaluation. We will sign off. Please call with any further questions. MARIELLE DAUGHERTY MD Aug 30, 2017 09:03
--- NOTE | 2017-08-30 09:35 | DS ---
DATE OF DISCHARGE: 08/30/2017 HOSPITAL COURSE: An 87-year-old female came in with chest pain. She came in with unstable angina. The patient's cardiac enzymes remain basically stable. She was seen by Dr. Estrada, school transportation director for further evaluation. Her blood sugars were brought under better control and the patient overall made good progress during the rest of her hospitalization. She was also somewhat dehydrated and her creatinine came down from over 2.2 down to 1.4 showing the degree of dehydration. In any case, the patient remained basically stable. There were no complications. Cardiology released to do an outpatient MPI. IMPRESSION: Unstable angina, type 2 diabetes, acute on top of chronic renal failure, coronary artery disease, obesity. DISCHARGE INSTRUCTIONS: The patient will be discharged home. 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 Apparently, she is moving and needs further evaluation. Heart healthy low-sodium diet. Decreased activity. Told to go to the nurse, Emergency Room if she did develop chest pain that was not relieved with nitroglycerin. ODELL LE MD DR: MARINO/treva JOB#: [id number] / [id number]
== END 2017-08-30 10:40 | disposition home or self-care (01) | DRG 683 ==
LOC: ER 10:30 → 1 SOUTH 13:04
PROVIDERS: ADMIT Family Medicine; ATTEND Family Medicine
DX: N17.9 Acute kidney failure, unspecified (principal); Z68.41 Body mass index [BMI] 40.0-44.9, adult; E11.22 Type 2 diabetes mellitus with diabetic chronic kidney disease; I25.110 Atherosclerotic heart disease of native coronary artery with unstable angina pectoris; E66.01 Morbid (severe) obesity due to excess calories; I13.0 Hypertensive heart and chronic kidney disease with heart failure and stage 1 through stage 4 chronic kidney disease, or unspecified chronic kidney disease; E86.0 Dehydration; I48.0 Paroxysmal atrial fibrillation; I50.9 Heart failure, unspecified; E78.5 Hyperlipidemia, unspecified; F32.9 Major depressive disorder, single episode, unspecified; I25.2 Old myocardial infarction; K21.9 Gastro-esophageal reflux disease without esophagitis; M10.9 Gout, unspecified; Z96.659 Presence of unspecified artificial knee joint; M19.90 Unspecified osteoarthritis, unspecified site; N18.3 Chronic kidney disease, stage 3 (moderate); M54.9 Dorsalgia, unspecified; N18.9 Chronic kidney disease, unspecified; Z79.01 Long term (current) use of anticoagulants; Z82.49 Family history of ischemic heart disease and other diseases of the circulatory system; Z85.828 Personal history of other malignant neoplasm of skin; Z86.73 Personal history of transient ischemic attack (TIA), and cerebral infarction without residual deficits; Z90.49 Acquired absence of other specified parts of digestive tract; Z90.710 Acquired absence of both cervix and uterus; Z95.5 Presence of coronary angioplasty implant and graft; Z88.8 Allergy status to other drugs, medicaments and biological substances; Z98.49 Cataract extraction status, unspecified eye
CPT/HCPCS: 36415; 71010; 80048; 80053; 81001; 82947; 83880; 84484; 85025; 87086; 93005; J1650; J1815; 99285-25; J7030

== ENCOUNTER 2017-10-18 09:45 | Inpatient (IN) | payer MEDICARE ==
[~2017-10-18] VITALS: Ht 160 cm; Wt 109.9 kg
[~2017-10-18 09:45] MED LIST changes: +APIX2.5T PO; +CITA20TA5 PO; +INSU100I11 SQ; +INSU100I32 SQ; +LEVO75TA5 PO; +NEBI5TAB2 PO; +NITR0.4T SL; +SIMV40TA3 PO; +VALS1TAB31 PO
[2017-10-18 10:33] LABS: BASO % 0 % (0-3); EOS # 0.1 x10^3/uL (0.0-0.7); EOS % 1 % (0-3); HEMATOCRIT 35.7 % (36.0-47.0); HEMOGLOBIN 11.5 g/dL (12.0-15.5); LYMPH # 2.1 x10^3/uL (1.0-4.8); LYMPH % 28 % (24-48); MEAN CORPUSCULAR HEMOGLOBIN 29 pg (25-35); MEAN CORPUSCULAR HGB CONC 32 g/dL (31-37); MEAN CORPUSCULAR VOLUME 91 fL (79-100); MONO # 0.6 x10^3/uL (0.0-1.1); MONO % 8 % (0-9); NEUT # 4.7 x10^3uL (1.8-7.7); NEUT % 63 % (31-73); PLATELET COUNT 166 x10^3/uL (140-400); RED BLOOD COUNT 3.93 x10^6/uL (3.50-5.40); RED CELL DISTRIBUTION WIDTH 15.6 % (11.5-14.5); WHITE BLOOD COUNT 7.5 x10^3/uL (4.0-11.0)
--- NOTE | 2017-10-18 10:41 | RAD ---
AP portable chest radiograph 10/18/2017 Clinical History: Chest pain since earlier today. An AP portable erect digital radiograph of the chest was obtained. Comparison study is dated 08/26/2017. A left-sided pacemaker is unchanged in position. The cardiac silhouette is borderline enlarged. Atherosclerotic calcification of the thoracic aorta is seen. The thoracic aorta is mildly tortuous. No acute parenchymal infiltrate is noted. No pneumothorax or pleural effusion is seen. Degenerative changes are seen involving the thoracic spine and both shoulders. Impression: No acute abnormality is seen.
--- NOTE | 2017-10-18 10:41 | EKG ---
[address] [address] Test Date: 2017-10-18 Test Time: 09:57:51 Pat Name: TEX GUAJARDO Department: Room: Gender: F [employer]: LEYDI : 1930 Requested By: ALF WARE Order Number: [id number] Reading MD: Nate Fleming MD Measurements Intervals [place] Rate: 80 P: [place]: QRS: -48 QRSD: 158 T: 107 QT: 448 QTc: 521 Interpretive Statements REGULAR RHYTHM, NO P WAVE FOUND ABNORMAL LEFT AXIS DEVIATION NON SPECIFIC INTRAVENTRICULAR BLOCK QRS(T) CONTOUR ABNORMALITY CONSISTENT WITH ANTEROLATERAL INFARCT PROBABLY OLD CONSISTENT WITH INFERIOR INFARCT PROBABLY OLD Electronically Signed On 10-21-2017 12:34:01 [employer]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
[2017-10-18 10:53] LABS: ALBUMIN 2.9 g/dL (3.4-5.0); ALBUMIN/GLOBULIN RATIO 0.9 (1.0-1.7); CALCIUM 8.6 mg/dL (8.5-10.1); GFR 23.5; MAGNESIUM 1.8 mg/dL (1.8-2.4); POTASSIUM 4.2 mmol/L (3.5-5.1); TOTAL BILIRUBIN 0.2 mg/dL (0.2-1.0); TOTAL PROTEIN 6.2 g/dL (6.4-8.2)
--- NOTE | 2017-10-18 11:20 | PHYS DOC ---
Past History Past Medical History: Arthritis, CAD, Cancer, Diabetes, GERD, High Cholesterol , Hypertension, TIA, Other Past Surgical History: Appendectomy, Cancer Surgery, Cholecystectomy, Hysterectomy, Knee Replacement, Lumbar Laminectomy, Pacemaker, Tonsillectomy, Other Smoking: Non-smoker Alcohol Use: None Drug Use: None Adult General Chief Complaint Chief Complaint: CHEST PAIN [facility] HPI 87-year-old female patient sent from her primary care physician office because of chest pain. Patient complaining of intermittent episodes of chest pain that usually happens once a month for the last 1 year. Patient states she had a non- exertional chest pain that started around 6 AM as a sharp and squeezing pain in left lower chest with radiation to her back and associated with shortness of breath. Patient denies dizziness, palpitation, nausea, fever and chills, cough with episodes of chest pain. Patient rated her pain 8/10. Patient had an appointment with her primary care physician and also complaining of chest pain sent to ER for evaluation. Had aspirin and nitroglycerin 1 by primary care physician office and her pain dropped to 6/10. Patient has multiple cardiac risk factors. Review of Systems Review of Systems Constitutional: Denies fever or chills [] Eyes: Denies change in visual acuity, redness, or eye pain [] HENT: Denies nasal congestion or sore throat [] Respiratory: Denies cough or shortness of breath [] Cardiovascular: No additional information not addressed in HPI [] GI: Denies abdominal pain, nausea, vomiting, bloody stools or diarrhea [] : Denies dysuria or hematuria [] Musculoskeletal: Denies back pain or joint pain [] Integument: Denies rash or skin lesions [] Neurologic: Denies headache, focal weakness or sensory changes [] Endocrine: Denies polyuria or polydipsia [] All other systems were reviewed and found to be within normal limits, except as documented in this note. Allergies Allergies Allergies Coded Allergies Type Severity Reaction Last Updated Verified codeine Allergy Intermediate 08/27/17 Yes lisinopril Allergy Intermediate cough 08/27/17 No morphine Allergy Intermediate 08/27/17 Yes Physical Exam Physical Exam Constitutional: Well developed, well nourished, mild distress, non-toxic appearance. [] HENT: Normocephalic, atraumatic, bilateral external ears normal, oropharynx moist, no oral exudates, nose normal. [] Eyes: PERRLA, EOMI, conjunctiva normal, no discharge. [] Neck: Normal range of motion, no tenderness, supple, no stridor. [] Cardiovascular:Heart rate regular rhythm, no murmur [] Lungs & Thorax: Bilateral breath sounds clear to auscultation [] Abdomen: Bowel sounds normal, soft, no tenderness, no masses, no pulsatile masses. [] Skin: Warm, dry, no erythema, no rash. [] Back: No tenderness, no CVA tenderness. [] Extremities: No tenderness, no cyanosis, no clubbing, ROM intact, no edema. [] Neurologic: Alert and oriented X 3, normal motor function, normal sensory function, no focal deficits noted. [] Psychologic: Affect normal, judgement normal, mood normal. [] Current Patient Data Vital Signs Vital Signs Date Time Temp Pulse Resp B/P (MAP) Pulse Ox O2 Delivery O2 Flow Rate FiO2 10/18/17 09:45 97.6 78 20 93 Room Air Lab Results Laboratory Tests Test 10/18/17 10:17 White Blood Count 7.5 x10^3/uL (4.0-11.0) Red Blood Count 3.93 x10^6/uL (3.50-5.40) Hemoglobin 11.5 g/dL (12.0-15.5) L Hematocrit 35.7 % (36.0-47.0) L Mean Corpuscular Volume 91 fL (79-100) Mean Corpuscular Hemoglobin 29 pg (25-35) Mean Corpuscular Hemoglobin Concent 32 g/dL (31-37) Red Cell Distribution Width 15.6 % (11.5-14.5) H Platelet Count 166 x10^3/uL (140-400) Neutrophils (%) (Auto) 63 % (31-73) Lymphocytes (%) (Auto) 28 % (24-48) Monocytes (%) (Auto) 8 % (0-9) Eosinophils (%) (Auto) 1 % (0-3) Basophils (%) (Auto) 0 % (0-3) Neutrophils # (Auto) 4.7 x10^3uL (1.8-7.7) Lymphocytes # (Auto) 2.1 x10^3/uL (1.0-4.8) Monocytes # (Auto) 0.6 x10^3/uL (0.0-1.1) Eosinophils # (Auto) 0.1 x10^3/uL (0.0-0.7) Basophils # (Auto) 0.0 x10^3/uL (0.0-0.2) Prothrombin Time 12.0 SEC (9.4-11.4) H Prothrombin Time INR 1.2 (0.9-1.1) H Sodium Level 144 mmol/L (136-145) Potassium Level 4.2 mmol/L (3.5-5.1) Chloride Level 107 mmol/L (98-107) Carbon Dioxide Level 27 mmol/L (21-32) Anion Gap 10 (6-14) Blood Urea Nitrogen 51 mg/dL (7-20) H Creatinine 2.0 mg/dL (0.6-1.0) H Estimated GFR (Cockcroft-Gault) 23.5 BUN/Creatinine Ratio 26 (6-20) H Glucose Level 178 mg/dL (70-99) H Calcium Level 8.6 mg/dL (8.5-10.1) Magnesium Level 1.8 mg/dL (1.8-2.4) Total Bilirubin 0.2 mg/dL (0.2-1.0) Aspartate Amino Transferase (AST) 15 U/L (15-37) Alanine Aminotransferase (ALT) 18 U/L (14-59) Alkaline Phosphatase 73 U/L (46-116) Creatine Kinase 52 U/L (26-192) Creatine Kinase MB (Mass) 1.7 ng/mL (0.0-3.6) Creatine Kinase MB Relative Index 3.3 % (0-4) Troponin I Quantitative 0.017 ng/mL (0-0.055) RA-Ggf-I-Type Natriuretic Peptide 4326 pg/mL (0-449) H Total Protein 6.2 g/dL (6.4-8.2) L Albumin 2.9 g/dL (3.4-5.0) L Albumin/Globulin Ratio 0.9 (1.0-1.7) L EKG EKG [EKG interpreted by me. EKG at 0 957 showed normal sinus rhythm at rate of 80, left axis deviation, nonspecific interventricular block, Q wave in anterior leads Radiology/Procedures Radiology/Procedures No acute finding was reported chest x-ray Course & Med Decision Making Course & Med Decision Making Pertinent Labs and Imaging studies reviewed. (See chart for details) Evaluation of patient in ER showed 87-year-old male patient with multiple cardiac problems sent from her primary care physician office because of chest pain. Patient had nitroglycerin 1 and his pain gradually resolved and denied any more pain while she was in ER. EKG did not show acute finding. Labs showed elevation of BNP is 4308 compare to 500 last month. Patient currently taking Lasix 40 mg daily and states she drinks plenty of liquids. Patient had stable elevation of BUN/creatinine with negative cardiac enzyme. Plan to admit patient with evaluation of chest pain and CHF and will consult cardiology traffic controller cable. Dr. Brar consulted at 1114 and accepted admission. Dragon Disclaimer Dragon Disclaimer This electronic medical record was generated, in whole or in part, using a voice recognition dictation system. Departure Departure: Impression: Primary Impression: Chest pain Additional Impressions: Congestive heart failure Renal insufficiency Disposition: ADMITTED INPATIENT (At 1114) Admitting Physician: Scott Brar Referrals: SCOTT BRAR MD (PCP) Problem Qualifiers ALF WARE MD Oct 18, 2017 11:20
[2017-10-18 13:32] VITALS: BP 145/70
[2017-10-18] MEDS ORDERED: INDO25CA PO (14:02)
[2017-10-18] MEDS ORDERED: INSU200I SQ (14:02)
[2017-10-18] MEDS ORDERED: FURO40TA4 PO (14:02)
[2017-10-18] MEDS ORDERED: OXYB5TAB PO (14:02)
[2017-10-18] MEDS ORDERED: NITR0.4T22 SL (14:04)
--- NOTE | 2017-10-18 14:36 | PDOC2 ---
CONSULT CARDIOVASCULAR CONSULTATION Requesting doctor: Dr. Brar Reason for consultation: Chest pain and shortness of breath Date of consultation: 10/18/17 HISTORY this is a 87-year-old white female normally followed by Dr. Darren Holloway, who has a long history of intermittent chest pain. She had more pain this morning around 5:30 AM. The pain got severe and she thought she will not be able to walk and make it out of her door. She saw her primary care today as part of her routine visit and when she reported the pain she was sent to the emergency room. In the emergency room her proBNP was elevated. She has hence been admitted with a diagnosis of CHF and chest pain. He is currently on oxygen. She denies any shortness of breath or chest pain. Her O2 sats were 92 year on room air. She reported the pain as being a pressure across her chest. The pain radiated into her shoulders and back. It occurred at rest. She did not take any nitroglycerin but was given nitroglycerin at the primary care's office. She does not recall defects. REVIEW OF SYSTEMS Tablets with a walker and does have chronic shortness of breath and intermittent chest pain. She denies any edema or PND orthopnea. She reports that she has gained weight Rest of the 12 organ review of system is negative. PREVIOUS MEDICAL HISTORY She has a history of coronary disease, and had a stent to the LAD in 2009 and right coronary artery in 1996. She has sick sinus syndrome and is status post pacemaker implant in July 2014. She has history of hypertension paroxysmal atrial fibrillation, hyperlipidemia, moderate carotid disease, moderate pulmonary hypertension, type 2 diabetes, chronic kidney disease, obesity, GERD and previous esophageal strictures requiring dilatation. She does have a memory problem. His hypothyroidism MEDICATIONS She was on bystolic 5 mg, Eliquis 2.5 twice a day, Lasix 40 mg every other day, simvastatin 40 mg, was soft and HCTZ 20/12.5, omeprazole 40, oxybutynin, levothyroxine, Humalog and allopurinol FAMILY HISTORY The patient reports that her father had coronary disease in his later years and of a coronary event at the age of 80 SOCIAL HISTORY line she does not smoke but did smoke in the past and quit in 1979. She does not take any alcohol. She lives by herself. Her children are in town PHYSICAL EXAMINATION General Appearance: well-nourished, well-developed, appears stated age Level of Distress: comfortable Lids and Conjunctivae: non-injected, anicteric, no pallor, no arcus senilis, no xanthelasma. Pupils equal and reactive. Extraocular movements are normal Lips, Teeth, and Gums: normal dentition, Ears: no lesions on external ear. Nose : no lesions on external nose, no sinus tenderness. Oropharynx: no cyanosis, no pallor (Mucous membranes are moist) Neck: supple, trachea midline, no masses, Carotid Arteries: bilateral normal upstroke, no bruits, no thrills. Jugular Veins: normal jugular venous pressure, Kussmaul's sign absent Cervical Lymph Nodes: non tender, not enlarged Thyroid: not enlarged, non tender , no nodules Cardiovascular exam: Precordial Exam: non displaced focal PMI, no heaves, no precordial thrills Rate And Rhythm: regular Heart Sounds: normal S1, physiologically split S2, no rub, no gallop, no click Systolic Murmur: No murmurs heard Diastolic Murmur: not heard Extremities: no cyanosis, No edema, no peripheral signs of emboli, no varicosities Respiratory exam Respiratory Effort: unlabored Chest Exam: normal curvature, no thoracic deformity, no chest wall tenderness. Percussion: resonant. Auscultation : clear, no wheezing, no rales, no rhonchi Peripheral Pulses. Pulses: full and equal in all extremities with no bruit except if noted. Posterior Tibialis Pulse normal.Dorsalis Pedis Pulse: normal Abdomen. Inspection and Palpation: soft, non distended, normal aorta, no bruit, non tender, no masses. Liver: non tender, no hepatomegaly. Spleen: non tender, no splenomegaly Musculoskeletal. Inspection: no joint tenderness, no joint swelling, no erythema Neuro/Psych. Motor: normal strength, normal tone. Gait: Steady gait. Mental Status: alert, normal affect. Orientation: oriented to time, place, and person. Insight: good judgment Skin. Inspection and Palpation: warm and dry (mild pallor). Nails: no clubbing Reviewed EKG EKG: Left bundle branch block, sinus rhythm IMPRESSION Chest pain: She has a long history of pain. She had a fusion scan on 10/05/17 which is normal. His pain could hence be secondary to either small vessel disease off her history of GERD. I will start him on some nitrates which might help for both. If her troponins are negative she does not require any further evaluation. Shortness of breath: Chronic. Some of it might be related to her weight gain. Her proBNP is elevated to 4300 however she does have significant renal dysfunction with a GFR of 23%. Her chest x-ray does not show any evidence of congestive heart failure and her chest is clear. Her O2 sats are normal on room air. I suspect that this is secondary to her morbid obesity and pulmonary hypertension. Pulmonary hypertension: Her last echo in 2013 had shown a PA systolic pressure of 65. I will get a nocturnal oximetry. She denies any history of sleep apnea but she does live alone. If a nocturnal oximetry is abnormal she'll need a sleep study as an outpatient. We will plan to repeat an echo as an outpatient Essential hypertension: Her blood pressure is under reasonable control on her prior medications. Abnormal EKG: Left bundle branch block. Chronic. Recent negative stress myocardial perfusion scan. Hypercholesterolemia: She is on simvastatin. Smoke atrial fibrillation: She is maintaining sinus rhythm without any sprinkles. She is anticoagulated with a renal dose Eliquis. Morbid obesity: She has gained weight. I have counseled her about it. Sick sinus syndrome, status post pacemaker implant in 2013. Chronic kidney disease: She does carry a diagnosis of chronic kidney disease. She does have a creatinine of 2.0, and a low albumin which might reflect that she has nephrotic syndrome. I will defer this to her primary care. Diabetes: Per Dr. Brar Problems: HUMBERTO SELF MD Oct 18, 2017 14:36
--- NOTE | 2017-10-18 14:51 | NUR ---
NSG NOTE; ADMISSION ADMIT TO ROOM 109 AT 1315 FROM ED VIA CART ACCOMP BY EMS PERSONNEL AND SON. SON WENT OVER THE PT'S MED LIST WITH ME HE FILLS HER MED BOXES
--- NOTE | 2017-10-18 15:23 | NUR ---
NSG NOTE; [facility] CARDIOLOGY CONSULT CALLED TO OFFICE AT [address]. DR SELF HERE AT 1445 TO SEE PT. NEW ORDER NOTED
[2017-10-18 15:26] VITALS: BP 128/89
[2017-10-18] MEDS: ISOSORBIDE MONONITRATE ER 30 MG TAB.ER.24H PO SCH (15:49)
[2017-10-18] MEDS ORDERED: DEXTROSE 50% 25 GM / 50ML DISP.SYRIN. IV PRN (16:45)
[2017-10-18] MEDS: INSULIN ASPART 300 UNITS/3 ML INSULN.PEN SQ SCH (17:28)
[2017-10-18] MEDS ORDERED: NITROGLYCERIN SUBLINGUAL 0.4 MG BOTTLE OF 25. SL PRN (18:15)
[2017-10-18] MEDS ORDERED: ACETAMINOPHEN 500 MG TABLET PO PRN (18:15)
[2017-10-18 19:28] VITALS: BP 108/59
[2017-10-18] MEDS: CITALOPRAM 20 MG TABLET. PO SCH (20:23)
[2017-10-18] MEDS: INDOMETHACIN 25 MG CAPSULE PO SCH (20:24)
[2017-10-18] MEDS: PANTOPRAZOLE 40 MG TABLET. PO SCH (20:24)
[2017-10-18] MEDS: APIXABAN 2.5 MG TABLET PO SCH (20:24)
[2017-10-18] MEDS ORDERED: INSULIN DETEMIR 300 UNITS/3 ML INSULN.PEN. SQ SCH (21:00)
[2017-10-18] MEDS ORDERED: SIMVASTATIN 40 MG TABLET. PO SCH (21:00)
[2017-10-18 22:52] VITALS: BP 119/68
[2017-10-19 06:20] VITALS: BP 127/62
--- NOTE | 2017-10-19 06:43 | NUR ---
NURSING: PT SEPT UP IN CHAIR, NOCTURNAL DESAT STUDY COMPLETED. IN GOOD SPIRITS THIS AM, STATES, "THAT'S THE BEST I'VE SLEPT IN WEEKS!" CONTINUES TO DENY PAIN. WILL MONITOR.
[2017-10-19] MEDS ORDERED: LEVOTHYROXINE 75 MCG TABLET PO SCH (07:00)
[2017-10-19] MEDS: APIXABAN 2.5 MG TABLET PO SCH (07:58)
[2017-10-19] MEDS: CITALOPRAM 20 MG TABLET. PO SCH (07:58)
[2017-10-19] MEDS: INDOMETHACIN 25 MG CAPSULE PO SCH ×2 (07:58→13:53)
[2017-10-19] MEDS: ISOSORBIDE MONONITRATE ER 30 MG TAB.ER.24H PO SCH (07:59)
[2017-10-19] MEDS: PANTOPRAZOLE 40 MG TABLET. PO SCH (07:59)
[2017-10-19] MEDS: INSULIN ASPART 300 UNITS/3 ML INSULN.PEN SQ SCH ×2 (08:05→12:11)
[2017-10-19] MEDS ORDERED: FUROSEMIDE 40 MG TABLET PO SCH (09:00)
[2017-10-19] MEDS ORDERED: LOSARTAN 50 MG TABLET. PO SCH (09:00)
[2017-10-19] MEDS ORDERED: METOPROLOL TART IMMED RELEASE 25 MG TABLET PO SCH (09:00)
[2017-10-19] MEDS ORDERED: ALLOPURINOL 100 MG TABLET. PO SCH (09:00)
[2017-10-19] MEDS ORDERED: OXYBUTYNIN CHLORIDE 5 MG TABLET PO SCH (09:00)
[2017-10-19] MEDS ORDERED: hydroCHLOROthiazide 25 MG TABLET PO SCH (09:00)
--- NOTE | 2017-10-19 09:51 | PDOC ---
MALICK PUCKETT SHOCK ABSORBER INSTALLER 10/19/17 0951: PROGRESS NOTES Diagnosis Problem Problems Medical Problems: (1) Chest pain Status: Acute (2) Congestive heart failure Status: Acute (3) Renal insufficiency Status: Acute Assessment We are seeing the patient for chest pain Chest pain: WI ruled out. recent normal nuclear stress test. ? Musculoskeletal. Trial of Lidocaine patch. Shortness of breath: Plan for VQ scan this am. Chronic. Her proBNP is elevated to 4300 however she does have significant renal dysfunction with a GFR of 23%. Her chest x-ray does not show any evidence of congestive heart failure and her chest is clear. Continue conservative management Pulmonary hypertension: Repeat echo as an OP Essential hypertension: Her blood pressure is under reasonable control on her medications. Abnormal EKG: Left bundle branch block. Chronic. Recent negative stress myocardial perfusion scan. Hypercholesterolemia: She is on simvastatin. Problems: Subjective She slept very well. Continues to have chest soreness at rest without radiation or associated symptoms. She is tender to palpation. She denies any palpitation and thinks her breathing is fine at rest. Objective Vital Signs Date Time Temp Pulse Resp B/P (MAP) Pulse Ox O2 Delivery O2 Flow Rate FiO2 10/19/17 08:00 Room Air 10/19/17 07:59 80 127/62 10/19/17 06:20 97.6 16 96 10/18/17 13:32 2.0 Intake and Output 10/19/17 07:00 Intake Total 1260 ml Output Total 925 ml Balance 335 ml Intake Oral 1260 ml Output Urine Total 925 ml Abdomen: Normal bowel sounds, Soft, No tenderness Heart: Regular rate, Normal S1, Normal S2 Extremities: No edema, Normal pulses General: Alert, Oriented X3, Cooperative HEENT: EOMI, Mucous membr. moist/pink Lungs: Clear to auscultation Review of Relevant I have reviewed the following items hernandez (where applicable) has been applied. Labs Laboratory Tests Test 10/18/17 10:17 10/18/17 13:25 10/18/17 16:10 10/18/17 16:27 White Blood Count 7.5 x10^3/uL (4.0-11.0) Red Blood Count 3.93 x10^6/uL (3.50-5.40) Hemoglobin 11.5 g/dL (12.0-15.5) Hematocrit 35.7 % (36.0-47.0) Mean Corpuscular Volume 91 fL (79-100) Mean Corpuscular Hemoglobin 29 pg (25-35) Mean Corpuscular Hemoglobin Concent 32 g/dL (31-37) Red Cell Distribution Width 15.6 % (11.5-14.5) Platelet Count 166 x10^3/uL (140-400) Neutrophils (%) (Auto) 63 % (31-73) Lymphocytes (%) (Auto) 28 % (24-48) Monocytes (%) (Auto) 8 % (0-9) Eosinophils (%) (Auto) 1 % (0-3) Basophils (%) (Auto) 0 % (0-3) Neutrophils # (Auto) 4.7 x10^3uL (1.8-7.7) Lymphocytes # (Auto) 2.1 x10^3/uL (1.0-4.8) Monocytes # (Auto) 0.6 x10^3/uL (0.0-1.1) Eosinophils # (Auto) 0.1 x10^3/uL (0.0-0.7) Basophils # (Auto) 0.0 x10^3/uL (0.0-0.2) Prothrombin Time 12.0 SEC (9.4-11.4) Prothromb Time International Ratio 1.2 (0.9-1.1) Sodium Level 144 mmol/L (136-145) Potassium Level 4.2 mmol/L (3.5-5.1) Chloride Level 107 mmol/L (98-107) Carbon Dioxide Level 27 mmol/L (21-32) Anion Gap 10 (6-14) Blood Urea Nitrogen 51 mg/dL (7-20) Creatinine 2.0 mg/dL (0.6-1.0) Estimated GFR (Cockcroft-Gault) 23.5 BUN/Creatinine Ratio 26 (6-20) Glucose Level 178 mg/dL (70-99) Calcium Level 8.6 mg/dL (8.5-10.1) Magnesium Level 1.8 mg/dL (1.8-2.4) Total Bilirubin 0.2 mg/dL (0.2-1.0) Aspartate Amino Transf (AST/SGOT) 15 U/L (15-37) Alanine Aminotransferase (ALT/SGPT) 18 U/L (14-59) Alkaline Phosphatase 73 U/L (46-116) Creatine Kinase 52 U/L (26-192) Creatine Kinase MB (Mass) 1.7 ng/mL (0.0-3.6) Creatine Kinase MB Relative Index 3.3 % (0-4) Troponin I Quantitative 0.017 ng/mL (0-0.055) < 0.017 ng/mL (0-0.055) QX-Jgi-N-Type Natriuretic Peptide 4326 pg/mL (0-449) Total Protein 6.2 g/dL (6.4-8.2) Albumin 2.9 g/dL (3.4-5.0) Albumin/Globulin Ratio 0.9 (1.0-1.7) Glucose (Fingerstick) 71 mg/dL (70-99) 193 mg/dL (70-99) Test 10/18/17 19:43 10/18/17 22:10 10/19/17 07:33 Glucose (Fingerstick) 226 mg/dL (70-99) 78 mg/dL (70-99) D-Dimer (Rosa) 0.58 mg/L (0.00-0.50) Troponin I Quantitative < 0.017 ng/mL (0-0.055) Medications Current Medications Isosorbide Mononitrate (Imdur) 30 mg DAILY PO Last administered on 10/19/17at 07: 59; Start 10/18/17 at 14:45 Insulin Aspart (NovoLOG) 18 units TIDWMEALS SQ Last administered on 10/19/17at 08 :05; Start 10/18/17 at 17:00 Dextrose 12.5 gm PRN Q15MIN PRN IV SEE COMMENTS; Start 10/18/17 at 16:45 Acetaminophen (Tylenol) 1,000 mg PRN Q6HRS PRN PO PAIN Last administered on 10/18at 22:58; Start 10/18/17 at 18:15 Allopurinol (Zyloprim) 200 mg DAILY PO Last administered on 10/19/17at 07:59; Start 10/19/17 at 09:00 Apixaban (Eliquis) 2.5 mg BID PO Last administered on 10/19/17at 07:58; Start 10/18/17 at 21:00 Citalopram Hydrobromide (CeleXA) 20 mg BID PO Last administered on 10/19/17 07: 58; Start 10/18/17 at 21:00 Furosemide (Lasix) 40 mg DAILY PO Last administered on 10/19/17at 08:00; Start at 09:00 Indomethacin (Indocin) 25 mg TID PO Last administered on 10/19/17at 07:58; Start 10/18/17 at 21:00 Levothyroxine Sodium (Synthroid) 75 mcg DAILY07 PO Last administered on at 05:55; Start 10/19/17 at 07:00 Nitroglycerin (Nitrostat) 0.4 mg PRN TID PRN SL CHEST PAIN; Start 10/18/17 at 18 :15 Simvastatin (Zocor) 40 mg HS PO Last administered on 10/18/17at 20:24; Start 10/18 at 21:00 Insulin Detemir (Levemir) 28 units QHS SQ Last administered on 10/18/17at 20:34; Start 10/18/17 at 21:00 Metoprolol Tartrate (Lopressor) 25 mg BID PO Last administered on 10/19/17 07: 58; Start 10/19/17 at 09:00 Pantoprazole Sodium (Protonix) 40 mg BID PO Last administered on 10/19/17 07:59 ; Start 10/18/17 at 21:00 Oxybutynin Chloride (Ditropan) 5 mg DAILY PO Last administered on 10/19/17at 07: 59; Start 10/19/17 at 09:00 Losartan Potassium (Cozaar) 100 mg DAILY PO Last administered on 10/19/17 07:58 ; Start 10/19/17 at 09:00 Hydrochlorothiazide (Hydrodiuril) 6.25 mg DAILY PO Last administered on 07:57; Start 10/19/17 at 09:00 Active Scripts Active Reported NITROGLYCERIN SubLingual (Nitroglycerin) 0.4 Mg Tab.subl 1 Tab SL UD PRN LAST DOSE GIVEN: DATE: TIME: NEXT DOSE DUE: DATE: TIME: Humalog Kwikpen (Insulin Lispro) 200 Unit/1 Ml Insuln.pen 18 Unit SQ TIDWMEALS LAST DOSE GIVEN: DATE: TIME: NEXT DOSE DUE: DATE: TIME: Oxybutynin Chloride Er (Oxybutynin Chloride) 5 Mg Tab.er.24 1 Tab PO DAILY LAST DOSE GIVEN: DATE: TIME: NEXT DOSE DUE: DATE: TIME: Indomethacin 25 Mg Capsule 1 Cap PO TID LAST DOSE GIVEN: DATE: TIME: NEXT DOSE DUE: DATE: TIME: Furosemide 40 Mg Tablet 1 Tab PO DAILY LAST DOSE GIVEN: DATE: TIME: NEXT DOSE DUE: DATE: TIME: Eliquis (Apixaban) 2.5 Mg Tablet 2.5 Mg PO BID LAST DOSE GIVEN: DATE: TIME: AM NEXT DOSE DUE: DATE: TODAY TIME: PM Valsartan-Hctz 320-12.5 Mg Tab (Valsartan/Hydrochlorothiazide) 1 Each Tablet 0.5 Tab PO DAILY LAST DOSE GIVEN: DATE: TIME: AM NEXT DOSE DUE: DATE: TIME: PM Levothyroxine Sodium 75 Mcg Tablet 75 Mcg PO DAILY LAST DOSE GIVEN: DATE: TIME: BEFORE BREAKFAST NEXT DOSE DUE: DATE: TOMORR TIME: BEFORE BREAKFAST Citalopram Hbr (Citalopram Hydrobromide) 20 Mg Tablet 20 Mg PO BID LAST DOSE GIVEN: DATE: TIME: AM NEXT DOSE DUE: DATE: TIME: PM Bystolic (Nebivolol Hcl) 5 Mg Tablet 5 Mg PO DAILY LAST DOSE GIVEN: DATE: TIME: AM NEXT DOSE DUE: DATE: TIME: AM Simvastatin 40 Mg Tablet 40 Mg PO HS LAST DOSE GIVEN: DATE: YES TIME: AT BEDTIME NEXT DOSE DUE: DATE: TIME: AT BEDTIME Basaglar Chrispen U-100 (Insulin Glargine,Hum.rec.anlog) 100 Unit/1 Ml Insuln.pen 28 Units SQ HS LAST DOSE GIVEN: DATE: TIME: AT BEDTIME NEXT DOSE DUE: DATE: TIME: AT BEDTIME Allopurinol 100 Mg Tablet 2 Tab PO DAILY LAST DOSE GIVEN: DATE: TIME: NEXT DOSE DUE: DATE: TIME: Acetaminophen 500 Mg Tablet 2 Tab PO PRN Q6HRS PRN LAST DOSE GIVEN: DATE: NOT GIVEN TODAY NEXT DOSE DUE: DATE: February TIME: IF AND WHEN NEEDED Omeprazole 40 Mg Capsule.dr 40 Mg PO BID LAST DOSE GIVEN: DATE: TIME: AM NEXT DOSE DUE: DATE: TODAY TIME: PM Vitals/I & O Vital Sign - Last 24 Hours 10/18/17 10/18/17 10/18/17 10/18/17 10:10 10:24 11:24 12:52 Pulse 85 80 80 80 Resp 19 23 16 20 B/P (MAP) 110/51 (70) 112/55 (74) 118/40 (66) Pulse Ox 94 94 95 95 O2 Delivery Nasal Cannula Nasal Cannula Nasal Cannula Nasal Cannula O2 Flow Rate 2.0 2.0 2.0 2.0 10/18/17 10/18/17 10/18/17 10/18/17 13:32 15:00 15:26 15:49 Temp 97.4 97.8 Pulse 80 80 80 Resp 20 20 B/P (MAP) 145/70 (95) 128/89 (102) 128/89 Pulse Ox 98 96 O2 Delivery Nasal Cannula Room Air Room Air O2 Flow Rate 2.0 10/18/17 10/18/17 10/18/17 10/19/17 19:28 20:00 22:52 06:20 Temp 98.4 98.0 97.6 Pulse 81 80 80 Resp 18 16 16 B/P (MAP) 108/59 (75) 119/68 (85) 127/62 (83) Pulse Ox 92 94 96 O2 Delivery Room Air Room Air Room Air Room Air 10/19/17 10/19/17 10/19/17 10/19/17 07:58 07:58 07:59 08:00 Pulse 80 80 80 B/P (MAP) 127/62 127/62 127/62 O2 Delivery Room Air Intake and Output 10/18/17 10/18/17 10/19/17 15:00 23:00 07:00 Intake Total 500 ml 400 ml 360 ml Output Total 675 ml 250 ml Balance 500 ml -275 ml 110 ml MICHELE ESCOBAR Jr, MD 10/20/17 0609: PROGRESS NOTES Assessment The patient was seen by Malick Puckett APRN and I have reviewed her findings and plan and agree with above. Due to staffing constraints, we did not have an attending available on this day to see the patient. Problems: MALICK PUCKETT APRN Oct 19, 2017 09:51 MICHELE ESCOBAR Jr, MD Oct 20, 2017 06:09
[2017-10-19] MEDS ORDERED: LIDOCAINE (700MG/PATCH) PATCH. TD SCH (10:00)
[2017-10-19 10:45] VITALS: BP 118/52
[2017-10-19 15:50] VITALS: BP 114/55
--- NOTE | 2017-10-19 15:52 | RAD ---
VQ Scan: Clinical History: shortness of breath. 06/14/2012 Technique: 10 mCi of xenon-133 was administered as an aerosol and spot views were obtained on a gamma camera for a Nuclear Medicine ventilation examination. 5.5 mCi of Tc 99m MAA was administered intravenously and spot views were obtained on the gamma camera for a Nuclear Medicine perfusion examination. Static images were reviewed as a V/Q scan . Findings: There is mild retention of radiotracer on the ventilation washout phase images likely airway disease. Perfusion images are homogeneous without perfusion defects except the photopenic defect identified in the right lateral and left anterior oblique view likely overlap of pacer. Impression: Low probability for pulmonary embolism. Electronically signed by: James Murray MD (10/19/2017 3:49 PM) [id number]
[2017-10-19] MEDS ORDERED: ISOS30TA4 PO (16:16)
--- NOTE | 2017-10-19 17:12 | NUR ---
NSG NOTE; DISCHARGE VERBAL AND WRITTEN DISCHARGE INSTRUCTIONS GIVEN TO PT AND HER SON WITH VERBAL UNDERSTANDIN. DISCHARGE FOR RETURN TO [facility] IN [facility] AT [address] BY FAMILY
== END 2017-10-19 17:00 | disposition home health service (06) | DRG 313 ==
LOC: ER 09:45 → 1 SOUTH 11:25 → OBSVTOIN 12:55
PROVIDERS: ADMIT Family Medicine; ATTEND Family Medicine
DX: R07.89 Other chest pain (principal); I25.10 Atherosclerotic heart disease of native coronary artery without angina pectoris; E11.22 Type 2 diabetes mellitus with diabetic chronic kidney disease; I27.20 Pulmonary hypertension, unspecified; E66.01 Morbid (severe) obesity due to excess calories; Z68.41 Body mass index [BMI] 40.0-44.9, adult; M19.90 Unspecified osteoarthritis, unspecified site; N18.9 Chronic kidney disease, unspecified; I12.9 Hypertensive chronic kidney disease with stage 1 through stage 4 chronic kidney disease, or unspecified chronic kidney disease; E78.00 Pure hypercholesterolemia, unspecified; E78.5 Hyperlipidemia, unspecified; K21.9 Gastro-esophageal reflux disease without esophagitis; E03.9 Hypothyroidism, unspecified; I44.7 Left bundle-branch block, unspecified; Z96.659 Presence of unspecified artificial knee joint; Z71.89 Other specified counseling; Z86.73 Personal history of transient ischemic attack (TIA), and cerebral infarction without residual deficits; Z90.49 Acquired absence of other specified parts of digestive tract; Z90.710 Acquired absence of both cervix and uterus; Z95.0 Presence of cardiac pacemaker; Z90.89 Acquired absence of other organs; Z88.8 Allergy status to other drugs, medicaments and biological substances; Z88.5 Allergy status to narcotic agent; Z83.3 Family history of diabetes mellitus; Z82.49 Family history of ischemic heart disease and other diseases of the circulatory system; Z79.4 Long term (current) use of insulin; Z79.899 Other long term (current) drug therapy; Z95.5 Presence of coronary angioplasty implant and graft; Z87.891 Personal history of nicotine dependence; Z79.01 Long term (current) use of anticoagulants
CPT/HCPCS: 36415; 71045; 78582; 80053; 82553; 82947; 83735; 83880; 84484; 85025; 85379; 85610; 93005; 94799; 96374; A9540; A9558; G0379; J1815; 99285-25

== ENCOUNTER → 2017-11-17 | Outpatient (CLI) | payer MEDICARE ==
[2017-10-19 15:50] VITALS: BP 114/55
[~2017-11-17] MED LIST changes: +FURO40TA4 PO; +INDO25CA PO; +INSU200I SQ; +ISOS30TA4 PO; +NITR0.4T22 SL
--- NOTE | 2017-11-17 14:39 | RAD ---
Carotid ultrasound, 11/17/2017: History: Carotid artery disease Duplex evaluation of the carotid arteries in the neck was performed including grayscale, color-flow and spectral Doppler analysis. The exam was compromised by the patient's body habitus. There is mild to atherosclerotic plaquing in the common carotid arteries and at the carotid bifurcations. The plaques are partially calcified. The peak systolic velocity in the right internal carotid artery is 67 cm/s with an end-diastolic velocity of 7 cm/s. The peak systolic velocity in the left internal carotid artery is 95 cm/s with an end-diastolic velocity of 11 cm/s. These Doppler findings suggest narrowing in the 0-50% diameter range. Antegrade flow is present in both vertebral arteries in the neck. IMPRESSION: Mild atherosclerotic plaquing at both carotid bifurcations with underlying luminal narrowing in the 0-50% diameter range bilaterally. Note: Stenosis calculations for CTA, MRA and conventional angiography are based upon determination of the distal ICA diameter in accordance with the NASCET methodology. Stenosis calculations for Doppler studies are derived from validated velocity criteria which are known to correlate with NASCET methodology of determining stenosis.
== END | disposition home or self-care (01) ==
LOC: US 10:33
PROVIDERS: ATTEND Internal Medicine Cardiovascular Disease
DX: I65.23 Occlusion and stenosis of bilateral carotid arteries (principal); Z87.891 Personal history of nicotine dependence
CPT/HCPCS: 93880

== ENCOUNTER 2018-01-19 14:13 | Inpatient (IN) | payer MEDICARE ==
[~2018-01-19] VITALS: Ht 160 cm; Wt 111.2 kg
--- NOTE | 2018-01-19 14:45 | EKG ---
[address] [address] Test Date: 2018-01-19 Test Time: 14:17:06 Pat Name: TEX GUAJARDO Department: Room: Gender: F Shredder Tender: : 1930 Requested By: ALF WARE Order Number: [id number] Reading MD: Nate Fleming MD Measurements Intervals [place] Rate: 63 P: 48 ID: [id number] QRS: -129 QRSD: 172 T: 86 QT: 522 QTc: 538 Interpretive Statements V-PACED RHYTHM Electronically Signed On 01-24-2018 15:29:54 CDT by Nate Fleming MD
[2018-01-19 14:51] LABS: BASO % 0 % (0-3); EOS % 1 % (0-3); HEMATOCRIT 33.3 % (36.0-47.0); HEMOGLOBIN 10.6 g/dL (12.0-15.5); LYMPH # 1.1 x10^3/uL (1.0-4.8); LYMPH % 15 % (24-48); MEAN CORPUSCULAR HEMOGLOBIN 29 pg (25-35); MEAN CORPUSCULAR HGB CONC 32 g/dL (31-37); MEAN CORPUSCULAR VOLUME 91 fL (79-100); MONO # 0.6 x10^3/uL (0.0-1.1); MONO % 8 % (0-9); NEUT # 5.8 x10^3uL (1.8-7.7); NEUT % 76 % (31-73); PLATELET COUNT 149 x10^3/uL (140-400); RED BLOOD COUNT 3.68 x10^6/uL (3.50-5.40); RED CELL DISTRIBUTION WIDTH 17.8 % (11.5-14.5); WHITE BLOOD COUNT 7.6 x10^3/uL (4.0-11.0)
[2018-01-19] MEDS ORDERED: ASPIRIN 81 MG TAB.CHEW PO ONE (15:00)
--- NOTE | 2018-01-19 15:11 | RAD ---
Portable chest, 01/19/2018: History: Chest pain Comparison is made to a study from 10/18/2017. A left-sided transvenous pacemaker is in place with 2 leads extending into the right heart. The heart size is within normal limits for the portable technique. There is calcific plaquing of the aorta. The pulmonary vascularity is normal. No pulmonary infiltrate is seen. There is no evidence of pleural fluid. IMPRESSION: No acute cardiopulmonary abnormality is detected.
[2018-01-19 15:17] LABS: MAGNESIUM 2.4 mg/dL (1.8-2.4)
--- NOTE | 2018-01-19 15:30 | PHYS DOC ---
Past History Past Medical History: Arthritis, CAD, Cancer, Diabetes, GERD, High Cholesterol , Hypertension, TIA, Other Past Surgical History: Appendectomy, Cancer Surgery, Cholecystectomy, Hysterectomy, Knee Replacement, Lumbar Laminectomy, Pacemaker, Tonsillectomy, Other Smoking: Non-smoker Alcohol Use: None Drug Use: None Adult General Chief Complaint Chief Complaint: CHEST PAIN [facility] HPI 87-year-old female patient brought in by EMS because of chest pain. Patient states she has had episodes of left-sided chest pain for several weeks as a aching pain with radiation to left shoulder and neck and associated with palpitations without shortness of breath, nausea, fever and chills, cough, dizziness. Patient rated her pain 5/10. Patient states she was at the [employer] shop today and had chest pain with sweating concern for her chest pain. Patient states the pain does not change with activity or eating. Patient states she didn 't feel good for the last several days. Review of Systems Review of Systems Constitutional: Denies fever or chills [] Eyes: Denies change in visual acuity, redness, or eye pain [] HENT: Denies nasal congestion or sore throat [] Respiratory: Denies cough or shortness of breath [] Cardiovascular: No additional information not addressed in HPI [] GI: Denies abdominal pain, nausea, vomiting, bloody stools or diarrhea [] : Denies dysuria or hematuria [] Musculoskeletal: Denies back pain or joint pain [] Integument: Denies rash or skin lesions [] Neurologic: Denies headache, focal weakness or sensory changes [] Endocrine: Denies polyuria or polydipsia [] All other systems were reviewed and found to be within normal limits, except as documented in this note. Current Medications Current Medications Current Medications Medications (Trade) Dose Ordered Sig/[facility] Start Time Stop Time Status Last Admin Dose Admin Aspirin (Children'S Aspirin) 324 mg 1X ONCE 01/19/18 15:00 01/19/18 15:01 DC Allergies Allergies Allergies Coded Allergies Type Severity Reaction Last Updated Verified codeine Allergy Intermediate 01/19/18 Yes lisinopril Allergy Intermediate cough 08/27/17 No morphine Allergy Intermediate 01/19/18 Yes Physical Exam Physical Exam Constitutional: Well developed, well nourished, no acute distress, non-toxic appearance. [] HENT: Normocephalic, atraumatic, bilateral external ears normal, oropharynx moist, no oral exudates, nose normal. [] Eyes: PERRLA, EOMI, conjunctiva normal, no discharge. [] Neck: Normal range of motion, no tenderness, supple, no stridor. [] Cardiovascular:Heart rate regular rhythm, no murmur [] Lungs & Thorax: Bilateral breath sounds clear to auscultation, reproducible pain [left chest wall] Abdomen: Bowel sounds normal, soft, no tenderness, no masses, no pulsatile masses. [] Skin: Warm, dry, no erythema, no rash. [] Back: No tenderness, no CVA tenderness. [] Extremities: No tenderness, no cyanosis, no clubbing, ROM intact, no edema. [] Neurologic: Alert and oriented X 3, normal motor function, normal sensory function, no focal deficits noted. [] Psychologic: Affect normal, judgement normal, mood normal. [] Current Patient Data Vital Signs Vital Signs Date Time Temp Pulse Resp B/P (MAP) Pulse Ox O2 Delivery O2 Flow Rate FiO2 01/19/18 14:33 97.0 72 16 93 Room Air Lab Results Laboratory Tests Test 01/19/18 14:30 White Blood Count 7.6 x10^3/uL (4.0-11.0) Red Blood Count 3.68 x10^6/uL (3.50-5.40) Hemoglobin 10.6 g/dL (12.0-15.5) L Hematocrit 33.3 % (36.0-47.0) L Mean Corpuscular Volume 91 fL (79-100) Mean Corpuscular Hemoglobin 29 pg (25-35) Mean Corpuscular Hemoglobin Concent 32 g/dL (31-37) Red Cell Distribution Width 17.8 % (11.5-14.5) H Platelet Count 149 x10^3/uL (140-400) Neutrophils (%) (Auto) 76 % (31-73) H Lymphocytes (%) (Auto) 15 % (24-48) L Monocytes (%) (Auto) 8 % (0-9) Eosinophils (%) (Auto) 1 % (0-3) Basophils (%) (Auto) 0 % (0-3) Neutrophils # (Auto) 5.8 x10^3uL (1.8-7.7) Lymphocytes # (Auto) 1.1 x10^3/uL (1.0-4.8) Monocytes # (Auto) 0.6 x10^3/uL (0.0-1.1) Eosinophils # (Auto) 0.0 x10^3/uL (0.0-0.7) Basophils # (Auto) 0.0 x10^3/uL (0.0-0.2) Prothrombin Time 11.6 SEC (9.4-11.4) H Prothrombin Time INR 1.1 (0.9-1.1) Magnesium Level 2.4 mg/dL (1.8-2.4) Creatine Kinase 59 U/L (26-192) Creatine Kinase MB (Mass) 1.1 ng/mL (0.0-3.6) Creatine Kinase MB Relative Index 1.9 % (0-4) Troponin I Quantitative < 0.017 ng/mL (0-0.055) QR-Ayt-T-Type Natriuretic Peptide 2583 pg/mL (0-449) H Lipase 99 U/L (73-393) EKG EKG EKG interpreted by me. EKG at 1417 showed normal sinus rhythm at rate of 63 with PVCs, right superior axis deviation, intraventricular block, poor R-wave progress in anterior leads, no acute ST and T wave abnormality Radiology/Procedures Radiology/Procedures [] Course & Med Decision Making Course & Med Decision Making Pertinent Labs and Imaging studies reviewed. (See chart for details) [] Dragon Disclaimer Dragon Disclaimer This electronic medical record was generated, in whole or in part, using a voice recognition dictation system. Departure Departure: Referrals: ODELL LE MD (PCP) ALF WARE MD Jan 19, 2018 15:30
[2018-01-19 15:44] LABS: BACTERIA,URINE MOD /HPF (0-FEW); BILIRUBIN,URINE NEG (NEG); CLARITY,URINE HAZY; COLOR,URINE YELLOW; GLUCOSE,URINE NEG (NEG); HYALINE CASTS, URINE MOD /HPF; NITRITE,URINE NEG (NEG); RBC,URINE 0 /HPF (0-2); SQUAMOUS EPITHELIAL CELL,UR MOD /LPF; UROBILINOGEN,URINE 0.2 mg/dL (0.2 mg/dL)
[2018-01-19 15:49] LABS: ALBUMIN 3.1 g/dL (3.4-5.0); ALBUMIN/GLOBULIN RATIO 0.9 (1.0-1.7); CALCIUM 8.9 mg/dL (8.5-10.1); CREATININE 2.2 mg/dL (0.6-1.0); POTASSIUM 5.7 mmol/L (3.5-5.1); TOTAL BILIRUBIN 0.2 mg/dL (0.2-1.0); TOTAL PROTEIN 6.5 g/dL (6.4-8.2)
[2018-01-19] MEDS ORDERED: ALBUTEROL SULFATE 2.5 MG/3 ML NEBU. CONT NEB ONE (16:30)
[2018-01-19 17:31] VITALS: BP 141/54
[2018-01-19] MEDS ORDERED: NITROGLYCERIN SUBLINGUAL 0.4 MG BOTTLE OF 25. SL PRN (18:00)
[2018-01-19] MEDS ORDERED: ACETAMINOPHEN 500 MG TABLET PO PRN (18:00)
[2018-01-19] MEDS: INSULIN ASPART 300 UNITS/3 ML INSULN.PEN SQ SCH (18:30)
[2018-01-19 19:11] VITALS: BP 144/71
[2018-01-19] MEDS: APIXABAN 2.5 MG TABLET PO SCH (20:38)
[2018-01-19] MEDS: PANTOPRAZOLE 40 MG TABLET. PO SCH (20:38)
[2018-01-19] MEDS: ALLOPURINOL 100 MG TABLET. PO SCH (20:38)
[2018-01-19] MEDS: INSULIN DETEMIR 300 UNITS/3 ML INSULN.PEN. SQ SCH (20:43)
[2018-01-19] MEDS ORDERED: SIMVASTATIN 40 MG TABLET. PO SCH (21:00)
[2018-01-19] MEDS ORDERED: INSULIN GLARGINE HUM REC ANLOG 25 UNIT SQ SCH (21:00)
[2018-01-19 22:59] VITALS: BP 116/49
[2018-01-20 02:56] LABS: BASO % 0 % (0-3); EOS # 0.1 x10^3/uL (0.0-0.7); EOS % 2 % (0-3); HEMATOCRIT 30.3 % (36.0-47.0); HEMOGLOBIN 9.8 g/dL (12.0-15.5); LYMPH # 2.8 x10^3/uL (1.0-4.8); LYMPH % 39 % (24-48); MEAN CORPUSCULAR HEMOGLOBIN 29 pg (25-35); MEAN CORPUSCULAR HGB CONC 32 g/dL (31-37); MEAN CORPUSCULAR VOLUME 89 fL (79-100); MONO # 0.6 x10^3/uL (0.0-1.1); MONO % 8 % (0-9); NEUT # 3.7 x10^3uL (1.8-7.7); NEUT % 51 % (31-73); PLATELET COUNT 137 x10^3/uL (140-400); RED BLOOD COUNT 3.39 x10^6/uL (3.50-5.40); RED CELL DISTRIBUTION WIDTH 17.3 % (11.5-14.5); WHITE BLOOD COUNT 7.3 x10^3/uL (4.0-11.0)
[2018-01-20 02:57] LABS: CALCIUM 8.9 mg/dL (8.5-10.1); GFR 23.5; POTASSIUM 4.5 mmol/L (3.5-5.1)
[2018-01-20 05:00] VITALS: BP 123/51
[2018-01-20] MEDS: FUROSEMIDE 40 MG TABLET PO SCH (08:13)
[2018-01-20] MEDS: LEVOTHYROXINE 75 MCG TABLET PO SCH (08:13)
[2018-01-20] MEDS: CITALOPRAM 20 MG TABLET. PO SCH (08:13)
[2018-01-20] MEDS: APIXABAN 2.5 MG TABLET PO SCH ×2 (08:13→21:27)
[2018-01-20] MEDS: ALLOPURINOL 100 MG TABLET. PO SCH ×2 (08:13→21:26)
[2018-01-20] MEDS: PANTOPRAZOLE 40 MG TABLET. PO SCH ×2 (08:13→21:26)
[2018-01-20] MEDS: INSULIN ASPART 300 UNITS/3 ML INSULN.PEN SQ SCH ×3 (08:20→17:00)
[2018-01-20 10:58] VITALS: BP_SYST 122; BP_SYST 147; BP_DIAS 61; BP_DIAS 74
[2018-01-20] MEDS: RANOLAZINE 500 MG TAB.ER.12H PO SCH ×2 (13:56→21:26)
--- NOTE | 2018-01-20 14:31 | HP ---
ADMIT DATE: 01/19/2018 HISTORY OF PRESENT ILLNESS: An 87-year-old female came in through the Emergency Room via EMS with left-sided chest pain for the last several weeks, aching pain radiating to her left shoulder and neck and associated with palpitations, but without any fever, chills, nausea, cough or dizziness. The patient notes that she usually relieved with rest. She has been having some sweating accompanying to the chest pain. As a result of all these, the patient was admitted to the hospital for further evaluation and rule out [place] protocol. PAST MEDICAL HISTORY: Arthritis, coronary artery disease, cancer, diabetes, GERD, hypercholesterolemia, hypertension, TIA, and morbid obesity. IMMUNIZATIONS: Up-to-date. PAST SURGICAL HISTORY: Appendectomy, cancer surgery, cholecystectomy, hysterectomy, knee replacement, lumbar laminectomy, pacemaker, tonsillectomy. SOCIAL HISTORY: The patient's socially denies smoking, alcohol or drug use. FAMILY HISTORY: Unremarkable. ALLERGIES: THE PATIENT HAS ALLERGY TO CODEINE, LISINOPRIL, AND MORPHINE. CODE STATUS: The patient is a DNR. OTHER MEDICAL HISTORY: Along with her other medical history, the patient has a history of cataracts, tonsillectomy, adenoidectomy, TIAs, previous heart attack, coronary catheterization, coronary stent placement. She has had pancreatitis, cholecystectomy, appendectomy, hysterectomy, inguinal hernia repair, gout, back surgery, bilateral knees as noted, depression, smoking quit in 1950. FAMILY HISTORY: Diabetes in daughter and son and mother. Stroke in the mother. Cancer in the son and mother. Cardiovascular disease in the father. MEDICATIONS: Include Eliquis 2.5 mg b.i.d., Zocor 40, nitroglycerin 0.4, Bystolic 5 mg daily, losartan/HCTZ daily, indomethacin 25, Celexa ____ 40 mg total, furosemide 40 mg daily, Prilosec 40, levothyroxine 75 mcg daily, oxybutynin, allopurinol 100. REVIEW OF SYSTEMS: As stated in the HPI with chest pain, shortness of breath. Denies abdominal pain. Denies nausea, vomiting, hematochezia, hematemesis and no TIA or neurological symptoms present at the present time. PHYSICAL EXAMINATION: GENERAL: This is a pleasant white female in moderate amount of distress. VITAL SIGNS: Blood pressure 140/50, respiratory rate 20, pulse 60, afebrile. HEENT: The patient's head was atraumatic, normocephalic. Eyes: PERRLA without jaundice. The mouth and throat were normal. NECK: Supple. LUNGS: Diminished throughout, poor movement of air. CARDIOVASCULAR: Regular sinus rhythm, S1, S2, without murmur, rub, thrill, or extra heart sound. ABDOMEN: Soft, nontender, no rebound or guarding. Positive bowel sounds, protuberant. EXTREMITIES: No clubbing, cyanosis, no edema. NEUROLOGIC: The patient was alert and oriented x 3. LABORATORY AND DIAGNOSTIC DATA: Hemoglobin 10.6 and 33, white count 7. The patient's cardiac enzymes are negative. Sodium is 142, 4, 49, and 2 with a blood sugar of 190. The patient's albumin is low. The patient is otherwise doing well there. The patient will be monitored carefully, get an echo. We will consult with Dr. Fleming. Chest x-ray was unremarkable. IMPRESSION: Chest pain, history of coronary artery disease with stent placement. PLAN: We will go ahead and continue to monitor the patient, accordingly make further evaluation on her as indicated along with the Cardiology. ODELL LE MD DR: MARINO/treva JOB#: [id number] / [id number]
--- NOTE | 2018-01-20 14:45 | PDOC2 ---
KATHI PUCKETT SURVEYING OR SPATIAL SCIENCE TECHNICIAN 01/20/18 1445: CONSULT Date of Admission DATE: 01/20/18 TIME: 14:41 Reason for Consult: chest pain Referring Physician: Dr Brar Problem List Problems Medical Problems: (1) Hyperkalemia Status: Acute History of Present Illness HISTORY OF PRESENT ILLNESS: This is a pleasant 87-year-old female who presented to the emergency room with chief complaint of chest pain. She has a past medical history of coronary artery disease status post angioplasty and stent placement to her LAD, sick sinus syndrome status post pacemaker placement , paroxysmal atrial fibrillation, hypertension, chronic kidney disease and hyperlipidemia. Yesterday morning she had noted she was having chest discomfort at rest and then she went to the [facility]. While she was there the pain became intense and more severe. She points to the left side of her chest and it was radiated up into her neck and down her left arm. It was associated with diaphoresis and made her family quite anxious. She was brought into the emergency room for further evaluation. With her history she was admitted and a cardiology consult was called. This morning she is completely pain-free she has been sitting in the chair most of the morning. REVIEW OF SYSTEMS: Review of 10 organ systems is negative except for as in HPI. PREVIOUS MEDICAL/SURGICAL HISTORY She has a history of coronary disease, and had a stent to the LAD in 2009 and right coronary artery in 1996. She has sick sinus syndrome and is status post pacemaker implant in July 2014. She has history of hypertension paroxysmal atrial fibrillation, hyperlipidemia, moderate carotid disease, moderate pulmonary hypertension, type 2 diabetes, chronic kidney disease, obesity, GERD and previous esophageal strictures requiring dilatation. She does have a memory problem. His hypothyroidism MEDICATIONS She was on bystolic 5 mg, Eliquis 2.5 twice a day, Lasix 40 mg every other day, simvastatin 40 mg, was soft and HCTZ 20/12.5, omeprazole 40 bid, oxybutynin, levothyroxine, Humalog and allopurinol ALLERGIES: Codeine, lisinopril, morphine. FAMILY HISTORY The patient reports that her father had coronary disease in his later years and of a coronary event at the age of 80 SOCIAL HISTORY line she does not smoke but did smoke in the past and quit in 1979. She does not take any alcohol. She lives by herself. Her children are in town PHYSICAL EXAMINATION GENERAL: This is a well developed, well nourished obese female. No apparent distress. SKIN: Warm and dry with normal skin turgor. Negative for pallor. No lesions or rashes noted. EYES: Conjunctiva are clear. Extraocular movements are intact. No xanthelasma. HEAD AND NECK: Oral mucosa is moist. There is no cyanosis. Neck is supple. Jugular venous pressure is flat. Carotid pulses are 2/2 bilaterally. No carotid bruits. There is no obvious thyromegaly. HEART: Regular rate and rhythm. Normal S1 and S2. No S3. No S4. + systolic murmur. No rub. LUNGS: Effort is good. There is symmetric expansion bilaterally. Clear to auscultation bilaterally. ABDOMEN: Normal active bowel sounds. Soft. Nontender. EXTREMITIES: No clubbing. No cyanosis. No edema of lower extremities. Palpable pedal pulses. MUSCULOSKELETAL: No kyphosis. No scoliosis. No localized tenderness or stiffness. Gait appears normal. NEUROLOGIC: Alert and oriented times three. Cranial nerves III-XII are grossly intact. PSYCHOLOGIC: This is a pleasant patient with a normal affect Cardiac testing: LEXISCAN NUCLEAR STRESS TEST IMPRESSION (10/05/2017): Normal myocardial perfusion scan. Normal left ventricular systolic function. Ejection fraction: 74%. There is no stress induced left ventricular dilatation or increase in lung to heart ratio. There was no stress induced chest pain. There were premature atrial and premature ventricular complexes. The stress ECG was nondiagnostic in view of baseline abnormalities Compared to the report (images were not available for review) from the previous study performed on 11/30/2013, there was no significant change. CAROTID ARTERY DUPLEX STUDY IMPRESSION (10/18/2015): Mild intimal disease in carotid bulb, ICA, ECA and CCA bilaterally. Doppler analysis revealed < 50% stenosis in carotid arteries bilaterally. Normal antegrade flow was noted in both vertebral arteries. PACEMAKER IMPLANTATION (08/03/2014): Successful implantation dual chamber permanent pacemaker under fluoroscopic guidance. ECHOCARDIOGRAM IMPRESSION (08/02/2014) ([facility]): The estimated ejection fraction is 55-60%. There is mild to moderate concentric left ventricular hypertrophy. The left ventricular diastolic filling pattern is consistent with pseudonormalization. The right ventricle is mildly dilated. The left atrium is mildly dilated. The right atrium is mildly dilated. Mild aortic cusp sclerosis is present. There is mild mitral annular calcification. The pulmonary artery pressure is estimated at 65 mmHg. CARDIAC CATHETERIZATION IMPRESSION (06/16/2012): Severe systemic hypertension with normal left ventricular end-diastolic pressure. Patent stents in the left anterior descending and left circumflex coronary arteries as outlined above with mild neointimal hyperplasia. There is a 50% stenosis in the ostium of the left circumflex and ramus intermedius branches. Fractional flow reserve on the left circumflex coronary artery did not reveal this stenosis to be significant. The patient is known to have normal left ventricular systolic function by previous noninvasive studies. IMPRESSION Chest pain: She has a long history of pain. Her perfusion scan on 10/05/17 was normal. In October she was here with chest pain and her proton pump inhibitor was increased to twice a day. Since discharge she has continued to have pain but it was less often. Yesterday at the [facility] her pain was witnessed it was radiating up her neck and associated with diaphoresis. Will do a trial of Ranexa 500 mg twice a day. Coronary arteriosclerosis in [place] artery Status post revascularization. We will continue guideline directed therapy. Sick sinus syndrome - Her pacemaker appears to be functioning normally. We will just continue with routine pacemaker checks by remote monitor and also in the office. Paroxysmal atrial fibrillation. We will continue beta-jourdan for rate control in the event that she has recurrent atrial fibrillation. We will continue Eliquis for stroke prevention. Hypercholesterolemia: we will plan to change her simvastatin to atorvastatin. It is better with her new addition of Ranexa Smoke atrial fibrillation: She is maintaining sinus rhythm without any sprinkles. She is anticoagulated with a renal dose Eliquis. Morbid obesity: She has gained weight. Chronic kidney disease: Defer this to her primary care. Thank her much Dr. Brar for the courtesy of this consultation will be happy to follow along with you. Current Medications Current Medications Aspirin (Children'S Aspirin) 324 mg 1X ONCE PO ; Start 01/19/18 at 15:00; Stop 01/19/18 at 15:01; Status DC Albuterol Sulfate (Ventolin) 10 mg 1X ONCE CONT NEB Last administered on at 16:29; Start 01/19/18 at 16:30; Stop 01/19/18 at 16:31; Status DC Acetaminophen (Tylenol) 1,000 mg PRN Q6HRS PRN PO PAIN Last administered on 08/28at 22:53; Start 01/19/18 at 18:00 Allopurinol (Zyloprim) 100 mg BID PO Last administered on 01/20/18 08:13; Start 01/19/18 at 21:00 Apixaban (Eliquis) 2.5 mg BID PO Last administered on 01/20/18 08:13; Start at 21:00 Citalopram Hydrobromide (CeleXA) 40 mg DAILY PO Last administered on 01/20/18 08:13; Start 01/20/18 at 09:00 Furosemide (Lasix) 40 mg DAILY PO Last administered on 01/20/18 08:13; Start 01/20/18 at 09:00 Levothyroxine Sodium (Synthroid) 75 mcg DAILYAC PO Last administered on 08:13; Start 01/20/18 at 07:30 Nitroglycerin (Nitrostat) 0.4 mg PRN TID PRN SL CHEST PAIN; Start 01/19/18 at 18:00 Simvastatin (Zocor) 40 mg HS PO Last administered on 01/19/18at 20:38; Start 08/28 at 21:00; Stop 01/20/18 at 13:08; Status DC Non-Formulary Medication (Insulin Glargine,Hum.rec.anlog (Basaglar Kwikpen U-100 )) 25 units HS SQ ; Start 01/19/18 at 21:00; Stop 01/19/18 at 21:00; Status DC Insulin Aspart (NovoLOG) 18 units TIDWMEALS SQ Last administered on 01/20/18at 12:07; Start 01/19/18 at 18:30 Pantoprazole Sodium (Protonix) 40 mg BID PO Last administered on 01/20/18 08: 13; Start 01/19/18 at 21:00 Insulin Detemir (Levemir) 25 units QHS SQ Last administered on 01/19/18at 20:43 ; Start 01/19/18 at 21:00 Ranolazine (Ranexa) 500 mg BID PO Last administered on 01/20/18 13:56; Start 01/20/18 at 14:00 Atorvastatin Calcium (Lipitor) 40 mg QHS PO ; Start 01/20/18 at 21:00 Active Scripts Active Reported NITROGLYCERIN SubLingual (Nitroglycerin) 0.4 Mg Tab.subl 1 Tab SL UD PRN LAST DOSE GIVEN: DATE: NOT GIVEN IN THE HOSPITAL NEXT DOSE DUE: DATE: TODAY TIME: IF AND WHEN NEEDED Humalog Kwikpen (Insulin Lispro) 200 Unit/1 Ml Insuln.pen 18 Unit SQ TIDWMEALS LAST DOSE GIVEN: DATE: TODAY TIME: WITH DINNER NEXT DOSE DUE: DATE: TOMORROW TIME: WITH BREAKFAST Oxybutynin Chloride Er (Oxybutynin Chloride) 5 Mg Tab.er.24 1 Tab PO DAILY LAST DOSE GIVEN: DATE: TODAY TIME:AM NEXT DOSE DUE: DATE: TOMORROW TIME: AM Indomethacin 25 Mg Capsule 1 Cap PO TID LAST DOSE GIVEN: DATE: TODAY TIME: AFTERNOON NEXT DOSE DUE: DATE: TODAY TIME: PM Furosemide 40 Mg Tablet 1 Tab PO DAILY LAST DOSE GIVEN: DATE: TIME: AM NEXT DOSE DUE: DATE: TOMORR TIME: AM Eliquis (Apixaban) 2.5 Mg Tablet 2.5 Mg PO BID LAST DOSE GIVEN: DATE: TODAY TIME: AM NEXT DOSE DUE: DATE: TODAY TIME: PM Valsartan-Hctz 320-12.5 Mg Tab (Valsartan/Hydrochlorothiazide) 1 Each Tablet 0.5 Tab PO DAILY LAST DOSE GIVEN: DATE: TIME: AM NEXT DOSE DUE: DATE: TODAY TIME: PM Levothyroxine Sodium 75 Mcg Tablet 75 Mcg PO DAILY LAST DOSE GIVEN: DATE: TIME: BEFORE BREAKFAST NEXT DOSE DUE: DATE: TOMORR TIME: BEFORE BREAKFAST Citalopram Hbr (Citalopram Hydrobromide) 20 Mg Tablet 40 Mg PO BID LAST DOSE GIVEN: DATE: TODAY TIME: AM NEXT DOSE DUE: DATE: TODAY TIME: PM Bystolic (Nebivolol Hcl) 5 Mg Tablet 5 Mg PO DAILY LAST DOSE GIVEN: DATE: TODAY TIME: AM NEXT DOSE DUE: DATE: TOMORR TIME: AM Simvastatin 40 Mg Tablet 40 Mg PO HS LAST DOSE GIVEN: DATE: YESTERDAY TIME: AT BEDTIME NEXT DOSE DUE: DATE: TODAY TIME: AT BEDTIME Basaglar Kwikpen U-100 (Insulin Glargine,Hum.rec.anlog) 100 Unit/1 Ml Insuln.pen 25 Units SQ HS LAST DOSE GIVEN: DATE: YESTERDAY TIME: AT BEDTIME NEXT DOSE DUE: DATE: TODAY TIME: AT BEDTIME Allopurinol 100 Mg Tablet 1 Tab PO BID LAST DOSE GIVEN: DATE: TODAY TIME:AM NEXT DOSE DUE: DATE: TOMORROW TIME: AM Acetaminophen 500 Mg Tablet 2 Tab PO PRN Q6HRS PRN LAST DOSE GIVEN: DATE: NOT GIVEN TODAY NEXT DOSE DUE: DATE: FEBRUARY TAKE TIME: IF AND WHEN NEEDED Omeprazole 40 Mg Capsule.dr 40 Mg PO BID LAST DOSE GIVEN: DATE: TODAY TIME: AM NEXT DOSE DUE: DATE: TODAY TIME: PM Allergies: Coded Allergies: codeine (Verified Allergy, Intermediate, 01/19/18) lisinopril (Unverified Allergy, Intermediate, cough, 08/27/17) morphine (Verified Allergy, Intermediate, 01/19/18) VITALS Vital Signs Date Time Temp Pulse Resp B/P (MAP) Pulse Ox O2 Delivery O2 Flow Rate FiO2 01/20/18 13:56 61 122/61 01/20/18 10:58 97.9 20 96 Room Air Labs Laboratory Tests Test 01/19/18 14:30 01/19/18 15:10 01/19/18 17:18 01/19/18 19:24 White Blood Count 7.6 x10^3/uL (4.0-11.0) Red Blood Count 3.68 x10^6/uL (3.50-5.40) Hemoglobin 10.6 g/dL (12.0-15.5) Hematocrit 33.3 % (36.0-47.0) Mean Corpuscular Volume 91 fL (79-100) Mean Corpuscular Hemoglobin 29 pg (25-35) Mean Corpuscular Hemoglobin Concent 32 g/dL (31-37) Red Cell Distribution Width 17.8 % (11.5-14.5) Platelet Count 149 x10^3/uL (140-400) Neutrophils (%) (Auto) 76 % (31-73) Lymphocytes (%) (Auto) 15 % (24-48) Monocytes (%) (Auto) 8 % (0-9) Eosinophils (%) (Auto) 1 % (0-3) Basophils (%) (Auto) 0 % (0-3) Neutrophils # (Auto) 5.8 x10^3uL (1.8-7.7) Lymphocytes # (Auto) 1.1 x10^3/uL (1.0-4.8) Monocytes # (Auto) 0.6 x10^3/uL (0.0-1.1) Eosinophils # (Auto) 0.0 x10^3/uL (0.0-0.7) Basophils # (Auto) 0.0 x10^3/uL (0.0-0.2) Prothrombin Time 11.6 SEC (9.4-11.4) Prothromb Time International Ratio 1.1 (0.9-1.1) Sodium Level 143 mmol/L (136-145) Potassium Level 5.7 mmol/L (3.5-5.1) Chloride Level 105 mmol/L (98-107) Carbon Dioxide Level 26 mmol/L (21-32) Anion Gap 12 (6-14) Blood Urea Nitrogen 50 mg/dL (7-20) Creatinine 2.2 mg/dL (0.6-1.0) Estimated GFR (Cockcroft-Gault) 21.0 BUN/Creatinine Ratio 23 (6-20) Glucose Level 106 mg/dL (70-99) Calcium Level 8.9 mg/dL (8.5-10.1) Magnesium Level 2.4 mg/dL (1.8-2.4) Total Bilirubin 0.2 mg/dL (0.2-1.0) Aspartate Amino Transf (AST/SGOT) 25 U/L (15-37) Alanine Aminotransferase (ALT/SGPT) 17 U/L (14-59) Alkaline Phosphatase 60 U/L (46-116) Creatine Kinase 59 U/L (26-192) Creatine Kinase MB (Mass) 1.1 ng/mL (0.0-3.6) Creatine Kinase MB Relative Index 1.9 % (0-4) Troponin I Quantitative < 0.017 ng/mL (0-0.055) DW-Efy-K-Type Natriuretic Peptide 2583 pg/mL (0-449) Total Protein 6.5 g/dL (6.4-8.2) Albumin 3.1 g/dL (3.4-5.0) Albumin/Globulin Ratio 0.9 (1.0-1.7) Lipase 99 U/L (73-393) Urine Collection Type Unknown Urine Color Yellow Urine Clarity Hazy Urine pH 5.0 Urine Specific [place] 1.010 Urine Protein Neg (NEG-TRACE) Urine Glucose (UA) Neg mg/dL (NEG) Urine Ketones (Stick) Neg mg/dL (NEG) Urine Blood Neg (NEG) Urine Nitrite Neg (NEG) Urine Bilirubin Neg (NEG) Urine Urobilinogen Dipstick 0.2 mg/dL (0.2 mg/dL) Urine Leukocyte Esterase Mod (NEG) Urine RBC 0 /HPF (0-2) Urine WBC 11-20 /HPF (0-4) Urine Squamous Epithelial Cells Mod /LPF Urine Bacteria Mod /HPF (0-FEW) Urine Hyaline Casts Mod /HPF Urine Mucus Slight /LPF Glucose (Fingerstick) 114 mg/dL (70-99) 192 mg/dL (70-99) Test 01/19/18 21:10 01/20/18 02:38 01/20/18 07:11 01/20/18 11:17 Troponin I Quantitative < 0.017 ng/mL (0-0.055) < 0.017 ng/mL (0-0.055) White Blood Count 7.3 x10^3/uL (4.0-11.0) Red Blood Count 3.39 x10^6/uL (3.50-5.40) Hemoglobin 9.8 g/dL (12.0-15.5) Hematocrit 30.3 % (36.0-47.0) Mean Corpuscular Volume 89 fL (79-100) Mean Corpuscular Hemoglobin 29 pg (25-35) Mean Corpuscular Hemoglobin Concent 32 g/dL (31-37) Red Cell Distribution Width 17.3 % (11.5-14.5) Platelet Count 137 x10^3/uL (140-400) Neutrophils (%) (Auto) 51 % (31-73) Lymphocytes (%) (Auto) 39 % (24-48) Monocytes (%) (Auto) 8 % (0-9) Eosinophils (%) (Auto) 2 % (0-3) Basophils (%) (Auto) 0 % (0-3) Neutrophils # (Auto) 3.7 x10^3uL (1.8-7.7) Lymphocytes # (Auto) 2.8 x10^3/uL (1.0-4.8) Monocytes # (Auto) 0.6 x10^3/uL (0.0-1.1) Eosinophils # (Auto) 0.1 x10^3/uL (0.0-0.7) Basophils # (Auto) 0.0 x10^3/uL (0.0-0.2) Sodium Level 142 mmol/L (136-145) Potassium Level 4.5 mmol/L (3.5-5.1) Chloride Level 104 mmol/L (98-107) Carbon Dioxide Level 28 mmol/L (21-32) Anion Gap 10 (6-14) Blood Urea Nitrogen 49 mg/dL (7-20) Creatinine 2.0 mg/dL (0.6-1.0) Estimated GFR (Cockcroft-Gault) 23.5 Glucose Level 93 mg/dL (70-99) Calcium Level 8.9 mg/dL (8.5-10.1) Glucose (Fingerstick) 97 mg/dL (70-99) 140 mg/dL (70-99) MICHELE ESCOBAR Jr, MD 01/21/18 0631: CONSULT Allergies: Coded Allergies: codeine (Verified Allergy, Intermediate, 01/19/18) lisinopril (Unverified Allergy, Intermediate, cough, 08/27/17) morphine (Verified Allergy, Intermediate, 01/19/18) Assessment/Plan The patient was seen by Kathi Puckett APRN and I have reviewed her findings and plan and agree with above. Due to staffing constraints, we did not have an attending available on this day to see the patient. Problems: KATHI PUCKETT APRN Jan 20, 2018 14:45 MICHELE ESCOBAR Jr, MD Jan 21, 2018 06:31
[2018-01-20 14:54] VITALS: BP 132/55
[2018-01-20 18:56] VITALS: BP 119/49
[2018-01-20] MEDS ORDERED: ATORVASTATIN CALCIUM 20 MG TABLET PO SCH (21:00)
[2018-01-20] MEDS: INSULIN DETEMIR 300 UNITS/3 ML INSULN.PEN. SQ SCH (21:31)
[2018-01-20 23:27] VITALS: BP 104/67
[2018-01-21 05:06] VITALS: BP 136/61
[2018-01-21] MEDS: PANTOPRAZOLE 40 MG TABLET. PO SCH (07:59)
[2018-01-21] MEDS: LEVOTHYROXINE 75 MCG TABLET PO SCH (07:59)
--- NOTE | 2018-01-21 08:11 | PDOC ---
MALICK PUCKETT [employer]NAGER 01/21/18 0811: PROGRESS NOTES Diagnosis Problem Problems Medical Problems: (1) Hyperkalemia Status: Acute Assessment We are seeing the patient for chest pain Chest pain: GA ruled out. Continue Ranexa 500 mg twice a day. Coronary arteriosclerosis in [place] artery Status post revascularization. We will continue guideline directed therapy. Sick sinus syndrome - Her pacemaker appears to be functioning normally. Paroxysmal atrial fibrillation. We will continue beta-jourdan for rate/rhythm control. We will continue Eliquis for stroke prevention. Hypercholesterolemia: Changed simvastatin to atorvastatin. It is better with her new addition of Ranexa Problems: Subjective She is up in her room with a walker. Denies any further occurrence of chest pain. Breathing is stable and denies palpitations. States "chest pain is better than has been in months, not sure what you gave me but there is a definite difference." Objective Vital Signs Date Time Temp Pulse Resp B/P (MAP) Pulse Ox O2 Delivery O2 Flow Rate FiO2 01/21/18 05:06 98.1 61 16 136/61 (86) 95 Room Air Intake and Output 01/21/18 07:00 Intake Total 1460 ml Balance 1460 ml Intake Oral 1460 ml # Voids 5 # Bowel Movements 1 Abdomen: Normal bowel sounds, Soft, No tenderness Heart: Regular rate, Normal S1, Normal S2, Other (+ systolic) General: Alert, Oriented X3, Cooperative HEENT: EOMI, Mucous membr. moist/pink Lungs: Clear to auscultation Psych/Mental Status: Mental status NL, Mood NL Review of Relevant I have reviewed the following items hernandez (where applicable) has been applied. Labs Laboratory Tests Test 01/19/18 14:30 01/19/18 15:10 01/19/18 17:18 01/19/18 19:24 White Blood Count 7.6 x10^3/uL (4.0-11.0) Red Blood Count 3.68 x10^6/uL (3.50-5.40) Hemoglobin 10.6 g/dL (12.0-15.5) Hematocrit 33.3 % (36.0-47.0) Mean Corpuscular Volume 91 fL (79-100) Mean Corpuscular Hemoglobin 29 pg (25-35) Mean Corpuscular Hemoglobin Concent 32 g/dL (31-37) Red Cell Distribution Width 17.8 % (11.5-14.5) Platelet Count 149 x10^3/uL (140-400) Neutrophils (%) (Auto) 76 % (31-73) Lymphocytes (%) (Auto) 15 % (24-48) Monocytes (%) (Auto) 8 % (0-9) Eosinophils (%) (Auto) 1 % (0-3) Basophils (%) (Auto) 0 % (0-3) Neutrophils # (Auto) 5.8 x10^3uL (1.8-7.7) Lymphocytes # (Auto) 1.1 x10^3/uL (1.0-4.8) Monocytes # (Auto) 0.6 x10^3/uL (0.0-1.1) Eosinophils # (Auto) 0.0 x10^3/uL (0.0-0.7) Basophils # (Auto) 0.0 x10^3/uL (0.0-0.2) Prothrombin Time 11.6 SEC (9.4-11.4) Prothromb Time International Ratio 1.1 (0.9-1.1) Sodium Level 143 mmol/L (136-145) Potassium Level 5.7 mmol/L (3.5-5.1) Chloride Level 105 mmol/L (98-107) Carbon Dioxide Level 26 mmol/L (21-32) Anion Gap 12 (6-14) Blood Urea Nitrogen 50 mg/dL (7-20) Creatinine 2.2 mg/dL (0.6-1.0) Estimated GFR (Cockcroft-Gault) 21.0 BUN/Creatinine Ratio 23 (6-20) Glucose Level 106 mg/dL (70-99) Calcium Level 8.9 mg/dL (8.5-10.1) Magnesium Level 2.4 mg/dL (1.8-2.4) Total Bilirubin 0.2 mg/dL (0.2-1.0) Aspartate Amino Transf (AST/SGOT) 25 U/L (15-37) Alanine Aminotransferase (ALT/SGPT) 17 U/L (14-59) Alkaline Phosphatase 60 U/L (46-116) Creatine Kinase 59 U/L (26-192) Creatine Kinase MB (Mass) 1.1 ng/mL (0.0-3.6) Creatine Kinase MB Relative Index 1.9 % (0-4) Troponin I Quantitative < 0.017 ng/mL (0-0.055) MI-Kik-B-Type Natriuretic Peptide 2583 pg/mL (0-449) Total Protein 6.5 g/dL (6.4-8.2) Albumin 3.1 g/dL (3.4-5.0) Albumin/Globulin Ratio 0.9 (1.0-1.7) Lipase 99 U/L (73-393) Urine Collection Type Unknown Urine Color Yellow Urine Clarity Hazy Urine pH 5.0 Urine Specific [place] 1.010 Urine Protein Neg (NEG-TRACE) Urine Glucose (UA) Neg mg/dL (NEG) Urine Ketones (Stick) Neg mg/dL (NEG) Urine Blood Neg (NEG) Urine Nitrite Neg (NEG) Urine Bilirubin Neg (NEG) Urine Urobilinogen Dipstick 0.2 mg/dL (0.2 mg/dL) Urine Leukocyte Esterase Mod (NEG) Urine RBC 0 /HPF (0-2) Urine WBC 11-20 /HPF (0-4) Urine Squamous Epithelial Cells Mod /LPF Urine Bacteria Mod /HPF (0-FEW) Urine Hyaline Casts Mod /HPF Urine Mucus Slight /LPF Glucose (Fingerstick) 114 mg/dL (70-99) 192 mg/dL (70-99) Test 01/19/18 21:10 01/20/18 02:38 01/20/18 07:11 01/20/18 11:17 Troponin I Quantitative < 0.017 ng/mL (0-0.055) < 0.017 ng/mL (0-0.055) White Blood Count 7.3 x10^3/uL (4.0-11.0) Red Blood Count 3.39 x10^6/uL (3.50-5.40) Hemoglobin 9.8 g/dL (12.0-15.5) Hematocrit 30.3 % (36.0-47.0) Mean Corpuscular Volume 89 fL (79-100) Mean Corpuscular Hemoglobin 29 pg (25-35) Mean Corpuscular Hemoglobin Concent 32 g/dL (31-37) Red Cell Distribution Width 17.3 % (11.5-14.5) Platelet Count 137 x10^3/uL (140-400) Neutrophils (%) (Auto) 51 % (31-73) Lymphocytes (%) (Auto) 39 % (24-48) Monocytes (%) (Auto) 8 % (0-9) Eosinophils (%) (Auto) 2 % (0-3) Basophils (%) (Auto) 0 % (0-3) Neutrophils # (Auto) 3.7 x10^3uL (1.8-7.7) Lymphocytes # (Auto) 2.8 x10^3/uL (1.0-4.8) Monocytes # (Auto) 0.6 x10^3/uL (0.0-1.1) Eosinophils # (Auto) 0.1 x10^3/uL (0.0-0.7) Basophils # (Auto) 0.0 x10^3/uL (0.0-0.2) Sodium Level 142 mmol/L (136-145) Potassium Level 4.5 mmol/L (3.5-5.1) Chloride Level 104 mmol/L (98-107) Carbon Dioxide Level 28 mmol/L (21-32) Anion Gap 10 (6-14) Blood Urea Nitrogen 49 mg/dL (7-20) Creatinine 2.0 mg/dL (0.6-1.0) Estimated GFR (Cockcroft-Gault) 23.5 Glucose Level 93 mg/dL (70-99) Calcium Level 8.9 mg/dL (8.5-10.1) Glucose (Fingerstick) 97 mg/dL (70-99) 140 mg/dL (70-99) Test 01/20/18 17:01 01/20/18 19:30 01/21/18 07:39 Glucose (Fingerstick) 67 mg/dL (70-99) 142 mg/dL (70-99) 106 mg/dL (70-99) Medications Current Medications Aspirin (Children'S Aspirin) 324 mg 1X ONCE PO ; Start 01/19/18 at 15:00; Stop 01/19/18 at 15:01; Status DC Albuterol Sulfate (Ventolin) 10 mg 1X ONCE CONT NEB Last administered on at 16:29; Start 01/19/18 at 16:30; Stop 01/19/18 at 16:31; Status DC Acetaminophen (Tylenol) 1,000 mg PRN Q6HRS PRN PO PAIN Last administered on 22:53; Start 01/19/18 at 18:00 Allopurinol (Zyloprim) 100 mg BID PO Last administered on 01/20/18 21:26; Start 01/19/18 at 21:00 Apixaban (Eliquis) 2.5 mg BID PO Last administered on 01/20/18at 21:27; Start at 21:00 Citalopram Hydrobromide (CeleXA) 40 mg DAILY PO Last administered on 01/20/18at 08:13; Start 01/20/18 at 09:00 Furosemide (Lasix) 40 mg DAILY PO Last administered on 01/20/18 08:13; Start 01/20/18 at 09:00 Levothyroxine Sodium (Synthroid) 75 mcg DAILYAC PO Last administered on 07:59; Start 01/20/18 at 07:30 Nitroglycerin (Nitrostat) 0.4 mg PRN TID PRN SL CHEST PAIN; Start 01/19/18 at 18:00 Simvastatin (Zocor) 40 mg HS PO Last administered on 01/19/18at 20:38; Start 08/28 at 21:00; Stop 01/20/18 at 13:08; Status DC Non-Formulary Medication (Insulin Glargine,Hum.rec.anlog (Basaglar Kwikpen U-100 )) 25 units HS SQ ; Start 01/19/18 at 21:00; Stop 01/19/18 at 21:00; Status DC Insulin Aspart (NovoLOG) 18 units TIDWMEALS SQ Last administered on 01/20/18at 12:07; Start 01/19/18 at 18:30 Pantoprazole Sodium (Protonix) 40 mg BID PO Last administered on 01/21/18at 07: 59; Start 01/19/18 at 21:00 Insulin Detemir (Levemir) 25 units QHS SQ Last administered on 01/20/18at 21:31 ; Start 01/19/18 at 21:00 Ranolazine (Ranexa) 500 mg BID PO Last administered on 01/20/18 21:26; Start 01/20/18 at 14:00 Atorvastatin Calcium (Lipitor) 40 mg QHS PO Last administered on 01/20/18at 21: 25; Start 01/20/18 at 21:00 Active Scripts Active Reported NITROGLYCERIN SubLingual (Nitroglycerin) 0.4 Mg Tab.subl 1 Tab SL UD PRN LAST DOSE GIVEN: DATE: NOT GIVEN IN THE HOSPITAL NEXT DOSE DUE: DATE: TODAY TIME: IF AND WHEN NEEDED Humalog Kwikpen (Insulin Lispro) 200 Unit/1 Ml Insuln.pen 18 Unit SQ TIDWMEALS LAST DOSE GIVEN: DATE: TODAY TIME: WITH DINNER NEXT DOSE DUE: DATE: TOMORROW TIME: WITH BREAKFAST Oxybutynin Chloride Er (Oxybutynin Chloride) 5 Mg Tab.er.24 1 Tab PO DAILY LAST DOSE GIVEN: DATE: TODAY TIME:AM NEXT DOSE DUE: DATE: TOMORR TIME: AM Indomethacin 25 Mg Capsule 1 Cap PO TID LAST DOSE GIVEN: DATE: TODAY TIME: AFTERNOON NEXT DOSE DUE: DATE: TODAY TIME: PM Furosemide 40 Mg Tablet 1 Tab PO DAILY LAST DOSE GIVEN: DATE: TIME: AM NEXT DOSE DUE: DATE: TOMORROW TIME: AM Eliquis (Apixaban) 2.5 Mg Tablet 2.5 Mg PO BID LAST DOSE GIVEN: DATE: TIME: AM NEXT DOSE DUE: DATE: TODAY TIME: PM Valsartan-Hctz 320-12.5 Mg Tab (Valsartan/Hydrochlorothiazide) 1 Each Tablet 0.5 Tab PO DAILY LAST DOSE GIVEN: DATE: TIME: AM NEXT DOSE DUE: DATE: TIME: PM Levothyroxine Sodium 75 Mcg Tablet 75 Mcg PO DAILY LAST DOSE GIVEN: DATE: TIME: BEFORE BREAKFAST NEXT DOSE DUE: DATE: TOMORROW TIME: BEFORE BREAKFAST Citalopram Hbr (Citalopram Hydrobromide) 20 Mg Tablet 40 Mg PO BID LAST DOSE GIVEN: DATE: TODAY TIME: AM NEXT DOSE DUE: DATE: TODAY TIME: PM Bystolic (Nebivolol Hcl) 5 Mg Tablet 5 Mg PO DAILY LAST DOSE GIVEN: DATE: TODAY TIME: AM NEXT DOSE DUE: DATE: TOMORROW TIME: AM Simvastatin 40 Mg Tablet 40 Mg PO HS LAST DOSE GIVEN: DATE: YESTERDAY TIME: AT BEDTIME NEXT DOSE DUE: DATE: TODAY TIME: AT BEDTIME Basaglar Kwikpen U-100 (Insulin Glargine,Hum.rec.anlog) 100 Unit/1 Ml Insuln.pen 25 Units SQ HS LAST DOSE GIVEN: DATE: YESTERDAY TIME: AT BEDTIME NEXT DOSE DUE: DATE: TODAY TIME: AT BEDTIME Allopurinol 100 Mg Tablet 1 Tab PO BID LAST DOSE GIVEN: DATE: TODAY TIME:AM NEXT DOSE DUE: DATE: TOMORROW TIME: AM Acetaminophen 500 Mg Tablet 2 Tab PO PRN Q6HRS PRN LAST DOSE GIVEN: DATE: NOT GIVEN TODAY NEXT DOSE DUE: DATE: February TIME: IF AND WHEN NEEDED Omeprazole 40 Mg Capsule.dr 40 Mg PO BID LAST DOSE GIVEN: DATE: TODAY TIME: AM NEXT DOSE DUE: DATE: TODAY TIME: PM Vitals/I & O Vital Sign - Last 24 Hours 01/20/18 01/20/18 01/20/18 01/20/18 10:58 13:56 14:54 18:56 Temp 97.9 97.6 97.7 Pulse 61 61 63 60 Resp 20 20 17 B/P (MAP) 122/61 (81) 122/61 132/55 (80) 119/49 (72) Pulse Ox 96 63 94 O2 Delivery Room Air Room Air Room Air 01/20/18 01/20/18 01/20/18 01/21/18 20:00 21:26 23:27 05:06 Temp 98.1 Pulse 60 60 61 Resp 16 16 B/P (MAP) 119/49 104/67 (79) 136/61 (86) Pulse Ox 92 95 O2 Delivery Room Air Room Air Room Air Intake and Output 01/20/18 01/20/18 01/21/18 15:00 23:00 07:00 Intake Total 980 ml 480 ml Balance 980 ml 480 ml MICHELE ESCOBAR Jr, MD 01/21/18 0913: PROGRESS NOTES Assessment Coronary artery disease with unstable angina. She had negative enzymes. Her symptoms improved with Ranexa. We will continue her on the Ranexa. She can be discharged to home from a cardiac standpoint. Sick sinus syndrome. Pacemaker appears to be functioning normally. We will continue with routine pacemaker checks in our office. Atrial fibrillation, paroxysmal. For the most part, the patient seems to be remaining in sinus rhythm. We will continue beta-jourdan for rate control and Eliquis for stroke prevention. Hypercholesterolemia. Her simvastatin was changed to atorvastatin and this also seems to be helping with her chest pain. Problems: Subjective We are seeing her for coronary artery disease. S: Her chest pain is resolved. She denies dyspnea, palpitations, syncope, or lower extremity edema. Abdomen: Normal bowel sounds, Soft, No tenderness Heart: Regular rate, Normal S1, Normal S2, Other (1/6 systolic ejection murmur. ) Extremities: No clubbing, No cyanosis, No edema, Normal pulses General: Alert, Oriented X3, Cooperative, No acute distress HEENT: Atraumatic, EOMI, Mucous membr. moist/pink Lungs: Clear to auscultation, Normal air movement Neck: No JVD, +2 carotid pulse wo bruit Neuro: Normal speech, Strength at 5/5 X4 ext, Normal tone, Cranial nerves 3-12 NL Psych/Mental Status: Mental status NL, Mood NL Skin: No rashes, No breakdown, No significant lesion MALICK PUCKETT APRN Jan 21, 2018 08:11 MICHELE ESCOBAR Jr, MD Jan 21, 2018 09:13
[2018-01-21 08:50] LABS: BASO % 0 % (0-3); EOS # 0.1 x10^3/uL (0.0-0.7); EOS % 2 % (0-3); HEMATOCRIT 34.3 % (36.0-47.0); LYMPH # 2.3 x10^3/uL (1.0-4.8); LYMPH % 39 % (24-48); MEAN CORPUSCULAR HEMOGLOBIN 29 pg (25-35); MEAN CORPUSCULAR HGB CONC 32 g/dL (31-37); MEAN CORPUSCULAR VOLUME 89 fL (79-100); MONO # 0.5 x10^3/uL (0.0-1.1); MONO % 8 % (0-9); NEUT # 2.9 x10^3uL (1.8-7.7); NEUT % 50 % (31-73); PLATELET COUNT 149 x10^3/uL (140-400); RED BLOOD COUNT 3.86 x10^6/uL (3.50-5.40); RED CELL DISTRIBUTION WIDTH 17.5 % (11.5-14.5); WHITE BLOOD COUNT 5.8 x10^3/uL (4.0-11.0)
[2018-01-21 09:01] VITALS: BP 136/61
[2018-01-21] MEDS: RANOLAZINE 500 MG TAB.ER.12H PO SCH (09:01)
[2018-01-21] MEDS: FUROSEMIDE 40 MG TABLET PO SCH (09:02)
[2018-01-21] MEDS: ALLOPURINOL 100 MG TABLET. PO SCH (09:02)
[2018-01-21] MEDS: CITALOPRAM 20 MG TABLET. PO SCH (09:02)
[2018-01-21] MEDS: APIXABAN 2.5 MG TABLET PO SCH (09:02)
[2018-01-21] MEDS: INSULIN ASPART 300 UNITS/3 ML INSULN.PEN SQ SCH ×2 (09:07→11:58)
[2018-01-21 09:09] LABS: CALCIUM 8.8 mg/dL (8.5-10.1); CREATININE 1.8 mg/dL (0.6-1.0); GFR 26.5; POTASSIUM 4.6 mmol/L (3.5-5.1)
[2018-01-21] MEDS ORDERED: ATOR20TA58 PO (10:39)
[2018-01-21] MEDS ORDERED: RANO500T2 PO (10:39)
== END 2018-01-21 12:45 | disposition home health service (06) | DRG 683 ==
LOC: ER 14:13 → 1 SOUTH 16:30
PROVIDERS: ADMIT Family Medicine; ATTEND Family Medicine
DX: N17.9 Acute kidney failure, unspecified (principal); I25.110 Atherosclerotic heart disease of native coronary artery with unstable angina pectoris; E87.5 Hyperkalemia; E11.22 Type 2 diabetes mellitus with diabetic chronic kidney disease; E66.01 Morbid (severe) obesity due to excess calories; Z68.41 Body mass index [BMI] 40.0-44.9, adult; I27.20 Pulmonary hypertension, unspecified; I48.0 Paroxysmal atrial fibrillation; N18.9 Chronic kidney disease, unspecified; K21.9 Gastro-esophageal reflux disease without esophagitis; I12.9 Hypertensive chronic kidney disease with stage 1 through stage 4 chronic kidney disease, or unspecified chronic kidney disease; E78.00 Pure hypercholesterolemia, unspecified; E78.5 Hyperlipidemia, unspecified; F32.9 Major depressive disorder, single episode, unspecified; M10.9 Gout, unspecified; M19.90 Unspecified osteoarthritis, unspecified site; H26.9 Unspecified cataract; Z66 Do not resuscitate; D64.9 Anemia, unspecified; E03.9 Hypothyroidism, unspecified; Z96.659 Presence of unspecified artificial knee joint; I25.2 Old myocardial infarction; Z95.0 Presence of cardiac pacemaker; Z82.3 Family history of stroke; Z82.49 Family history of ischemic heart disease and other diseases of the circulatory system; Z86.73 Personal history of transient ischemic attack (TIA), and cerebral infarction without residual deficits; Z87.891 Personal history of nicotine dependence; Z90.710 Acquired absence of both cervix and uterus; Z95.5 Presence of coronary angioplasty implant and graft; Z90.49 Acquired absence of other specified parts of digestive tract; Z90.89 Acquired absence of other organs; Z88.5 Allergy status to narcotic agent; Z88.8 Allergy status to other drugs, medicaments and biological substances; Z85.9 Personal history of malignant neoplasm, unspecified; Z80.9 Family history of malignant neoplasm, unspecified; Z79.01 Long term (current) use of anticoagulants; Z79.899 Other long term (current) drug therapy; Z79.4 Long term (current) use of insulin
CPT/HCPCS: 36415; 71045; 80048; 80053; 81001; 82553; 82947; 83690; 83735; 83880; 84484; 85025; 85610; 87086; 93005; 93306; J1815; J7613; 99285-25